=== PATIENT | female | born 1965 | race Caucasian/White ===

== ENCOUNTER 2016-11-11 11:25 | Day surgery (SDC) | payer BC ==
[~2016-11-11] VITALS: Ht 160 cm; Wt 59.9 kg
[2016-11-11] VITALS (8 sets, daily range): BP systolic 132–162; BP diastolic 62–80
[~2016-11-11 11:25] MED LIST: ASPI-983 PO; CLOP75TA28 PO; METF1000 PO; TRAM50TA2 PO
[2016-11-11] MEDS ORDERED: LIDOCAINE 1% INJ 20 ML (XYLOCAINE) VIAL ONE ×2 (11:27→14:35)
[2016-11-11] MEDS ORDERED: HEParin (CATH LAB) 2,000 ML IV ONE (11:27)
[2016-11-11] MEDS ORDERED: NS IV 1000 ML 1,000 ML ONE (11:27)
--- OUTSIDE RECORDS SUMMARY | 2016-11-11 11:28 | XMS REPORT | Continuity of Care Document ---
Author Author [facility] Organization [facility] Address Unknown Phone Unavailable Care Team Providers Care Siderographer Name Role Phone CALE SHANNON MD PCP Insurance Providers Payer Name Policy Number Subscriber Name Relationship [facility] [id number] Ricki Simms Self / Same As Patient Advance Directives Directive Response Recorded Date/Time Advance Directives No 02/28/16 11:29am Health Care Power of [employer] Glazer No 02/28/16 11:29am Organ Donor Yes 02/28/16 11:29am Problems No problem information available. Medications Current Home Medications Medication Dose Units Route Directions Days/Qty Instructions Start Date Tramadol Hcl 50 Mg 50 Mg Oral Every 6 Hours as needed for Pain 02/27 Aspirin 81 Mg 81 Mg Oral Daily 100 02/28/16 Clopidogrel Bisulfate 75 Mg 75 Mg Oral Daily 30 02/28/16 Past Home Medications Medication Directions Ordered Status Metformin Hcl 1,000 Mg Tablet, 1000 Mg Oral Twice A Day 02/28/16 Discontinued Social History Social History Problem Response Recorded Date/Time Recent Foreign Travel No 03/30/2016 7:34am Hospital Discharge Instructions Current inpatient/outpatient. Discharge instructions are currently unavailable. Plan of Care Prescriptions Functional Status Query Response Date Recorded Patient Orientation Person Place Time Situation March 30, 2016 9:26am Allergies, Adverse Reactions, Alerts Allergen Type Severity Reaction Status Last Updated Cephalexin Allergy Mild RASH Active 02/28/16 Immunizations No immunization records. Vital Signs Acute Vital Signs Vital Response Date/Time Pulse Rate (adult) 56 bpm (60 - 90) 03/30/2016 9:26am Respiratory Rate 14 bpm (12 - 24) 03/30/2016 9:26am O2 Sat by Pulse Oximetry 97 % (88 - 100) 03/30/2016 9:26am Blood Pressure 164/69 mm Hg 03/30/2016 9:26am Blood Pressure Mean 100 mm Hg 03/30/2016 9:26am Results Microbiology Results Procedure Source Result Collection Date/Time Result Date/Time Anaerobic Culture Tissue, Foot, Right No growth 01/23/2016 1:10pm 2015 4:30pm Wound Culture Tissue, Foot, Right No growth 01/23/2016 1:10pm 01/27/2016 4: 30pm Procedures No known history of procedures. Encounters Encounter Location Arrival/Admit Date Discharge/Depart Date Attending Provider Registered Clinic [facility] 03/30/16 7:36am FARZANEH SKELTON MD Discharged Recurring [facility] 02/27/16 12:35pm 11:59pm VIDYA BANDA APRN
--- OUTSIDE RECORDS SUMMARY | 2016-11-11 11:28 | XMS REPORT | Continuity of Care Document ---
Author Author [facility] Organization [facility] Address Unknown Phone Unavailable Care Team Providers Care Locomotive Supervisor Name Role Phone CALE SHANNON MD PCP Insurance Providers Payer Name Policy Number Subscriber Name Relationship [facility] [id number] Ricki Simms Self / Same As Patient Advance Directives Directive Response Recorded Date/Time Advance Directives No 02/28/16 11:29am Health Care Power of Robotics Engineer No 02/28/16 11:29am Organ Donor Yes 02/28/16 [...] Discharge/Depart Date Attending Provider Registered Clinic [facility] 03/30/16 7:36am FARZANEH SKELTON MD Discharged Recurring [facility] 02/27/16 12:35pm 11:59pm VIDYA BANDA APRN
[2016-11-11] MEDS ORDERED: NS IV 1000 ML 1,000 ML IV SCH (12:00)
[2016-11-11] MEDS ORDERED: METF1000 PO (12:04)
[2016-11-11] MEDS ORDERED: ASPI-983 PO (12:04)
[2016-11-11] MEDS ORDERED: CLOP75TA69 PO (12:04)
[2016-11-11] MEDS ORDERED: OMG1KC PO (12:04)
[2016-11-11 12:07] LABS: RED BLOOD COUNT 4.18 10^6/uL (4.35-5.85); RED CELL DISTRIBUTION WIDTH 13.4 % (10.0-14.5)
[2016-11-11 12:08] LABS: BILIRUBIN,URINE NEGATIVE (NEGATIVE); KETONES,URINE 1+ (NEGATIVE); LEUKOCYTE ESTERASE ,URINE 1+ (NEGATIVE); NITRITE,URINE NEGATIVE (NEGATIVE); PH,URINE 6 (5-9); PROTEIN,URINE NEGATIVE (NEGATIVE); UROBILINOGEN,URINE 1 MG/DL (NORMAL)
[2016-11-11 12:24] LABS: INR 0.9 (0.8-1.4); PROTHROMBIN TIME PATIENT 12.3 SEC (12.2-14.7)
--- NOTE | 2016-11-11 12:25 | Diagnostic Imaging Report ---
Indication: Peripheral vascular disease Portable chest 12:19 PM Heart size and pulmonary vascularity are normal. Lungs are clear. There are no effusions or pneumothoraces. Impression: Negative chest Dictated by: Dictated on workstation # [id number]
[2016-11-11 12:26] LABS: WBC,URINE 0-2 /HPF
[2016-11-11 12:35] LABS: ALANINE AMINOTRANSFERASE 12 U/L (0-55); ALBUMIN 4.2 G/DL (3.2-4.5); ANION GAP 11 MMOL/L (5-14); ASPARTATE AMINO TRANSFERASE 14 U/L (5-34); BILIRUBIN,TOTAL 0.4 MG/DL (0.1-1.0); BLOOD UREA NITROGEN 12 MG/DL (7-18); BUN/CREATININE RATIO 16; CALCIUM 8.9 MG/DL (8.5-10.1); CARBON DIOXIDE 23 MMOL/L (21-32); CHLORIDE 106 MMOL/L (98-107); CHOLESTEROL 210 MG/DL (< 200); CREATININE SERUM 0.75 MG/DL (0.60-1.30); DIRECT LDL 169 MG/DL (1-129); GFR ESTIMATED > 60; GLUCOSE 95 MG/DL (70-105); POTASSIUM 3.4 MMOL/L (3.6-5.0); SODIUM 140 MMOL/L (135-145); TOTAL PROTEIN 6.7 G/DL (6.4-8.2); TRIGLYCERIDES 83 MG/DL (<150); VLDL CHOLESTEROL 17 MG/DL (5-40)
[2016-11-11] MEDS ORDERED: FLU TRIvalent (5 YOA+) 2016-17 (AFLURIA) 0.5 ML IM ONE (13:00)
[2016-11-11] MEDS ORDERED: HEParin 1000 UNIT/ML (10ML VIAL) FOR BOLUS ONE (14:39)
[2016-11-11] MEDS ORDERED: NITROGLYCERIN DRIP 25 MG/D5W 250 ML IV ONE (15:02)
[2016-11-11] MEDS ORDERED: meTOprolol 5 MG/5 ML (LOPRESSOR) VIAL IV NR (16:45)
[2016-11-11] MEDS ORDERED: ENALAPRILAT 2.5 MG/2 ML (VASOTEC) VIAL IV NR (16:45)
[2016-11-11] MEDS ORDERED: PATIENT MAY USE OWN MEDS, ALL PO SCH (16:45)
[2016-11-11] MEDS: NS IV 1000 ML 1,000 ML IV SCH ×2 (19:04→21:17)
[2016-11-11] MEDS ORDERED: ONDANSETRON 4 MG/2 ML (SDV) Z0FRAN IVP PRN (19:15)
[2016-11-11] MEDS ORDERED: ATROPINE INJECTION 1 MG/10 ML SYR (ABBOTT) ONE (20:15)
[2016-11-11] MEDS ORDERED: fentaNYL INJECTION 100 MCG/2 ML AMP ONE (20:15)
[2016-11-11] MEDS ORDERED: ATORVASTATIN 10 MG (LIPITOR) TABLET PO SCH (21:00)
[2016-11-11] MEDS ORDERED: fentaNYL INJECTION 100 MCG/2 ML AMP IVP PRN (21:30)
[2016-11-12] VITALS (9 sets, daily range): BP systolic 136–176; BP diastolic 67–78
[2016-11-12 04:19] LABS: BASOPHILS % (AUTO) 0 % (0-10); EOSINOPHILS % (AUTO) 0 % (0-10); LYMPHOCYTES # (AUTO) 1.2 X 10^3 (1.0-4.0); LYMPHOCYTES % (AUTO) 16 % (12-44); MEAN CORPUSCULAR HEMOGLOBIN 33 PG (25-34); MEAN CORPUSCULAR HGB CONC 33 G/DL (32-36); MEAN CORPUSCULAR VOLUME 98 FL (80-99); MEAN PLATELET VOLUME 10.2 FL (7.4-10.4); MONOCYTES # (AUTO) 0.7 X 10^3 (0.0-1.0); MONOCYTES % (AUTO) 9 % (0-12); NEUTROPHILS # (AUTO) 5.6 X 10^3 (1.8-7.8); NEUTROPHILS % (AUTO) 74 % (42-75); PLATELET COUNT 154 10^3/uL (130-400); RED BLOOD COUNT 3.84 10^6/uL (4.35-5.85); RED CELL DISTRIBUTION WIDTH 13.4 % (10.0-14.5); WHITE BLOOD COUNT 7.5 10^3/uL (4.3-11.0)
[2016-11-12 04:44] LABS: ANION GAP 9 MMOL/L (5-14); BLOOD UREA NITROGEN 11 MG/DL (7-18); BUN/CREATININE RATIO 15; CALCIUM 8.3 MG/DL (8.5-10.1); CARBON DIOXIDE 22 MMOL/L (21-32); CHLORIDE 108 MMOL/L (98-107); CREATININE SERUM 0.71 MG/DL (0.60-1.30); GFR ESTIMATED > 60; GLUCOSE 108 MG/DL (70-105); MAGNESIUM 1.6 MG/DL (1.8-2.4); PHOSPHORUS 4.1 MG/DL (2.3-4.7); POTASSIUM 4.1 MMOL/L (3.6-5.0); SODIUM 139 MMOL/L (135-145)
--- NOTE | 2016-11-12 07:22 | Cardiology Progress Note ---
Subjective Subjective/Events-last exam patient is feeling better, pulses palpable, groin on both side are healing well Review of Systems General: No Chills, No Night Sweats, No Fatigue, No Malaise, No Appetite, No Other HEENT: No Head Aches, No Visual Changes, No Eye Pain, No Ear Pain, No Dysphasia , No Sinus Congestion, No Post Nasal Drip, No Sore Throat, No Other Pulmonary: No Dyspnea, No Cough, No Pleuritic Chest Pain, No Other Cardiovascular: No: Chest Pain, Edema, Lt Headedness, Orthopnea, Other, Palpitations, Paroxysmal Noc. Dyspnea Objective-Cardiology Exam Last Set of Vital Signs Vital Signs 11/12/16 06:00 Pulse 66 Resp 14 B/P 176/78 Pulse Ox 96 O2 Delivery Room Air Capillary Refill : Less Than 3 Seconds General: Alert, Oriented X3, Cooperative HEENT: Atraumatic, PERRLA Neck: Supple, No JVD, No Thyromegaly Lungs: Clear to Auscultation, Normal Air Movement Heart: Regular Rate, Normal S1, Normal S2, No Murmurs Abdomen: Normal Bowel Sounds, Soft, No Tenderness, No Hepatosplenomegaly, No Masses Extremities: No Clubbing, No Cyanosis, No Edema, Normal Pulses, No Tenderness/ Swelling Skin: No Rashes, No Breakdown, No Significant Lesion Neuro: Normal Gait, Normal Speech, Strength at 5/5 X4 Ext, Normal Tone, Sensation Intact Psych/Mental Status: Mental Status NL, Mood NL Results Lab Laboratory Tests 11/11/16 12:00 11/12/16 03:17 A/P-Cardiology Admission Diagnosis peripheral arterial disease Nonhealing foot ulcer Hypertension Hyperlipidemia Tobaccoism Assessment/Plan Extensive peripheral arterial disease, complex intervention to the iliac arteries, small arteries, excellent results, palpable pulses bilaterally Nonhealing foot ulcer, continue to monitor Hypertension, starting on Norvasc, monitor blood pressure Hyperlipidemia, starting on Lipitor Tobaccoism dictated on smoking cessation FARZANEH SKELTON MD Nov 12, 2016 07:22
[2016-11-12] MEDS ORDERED: AMLO5TAB2 PO (07:23)
[2016-11-12] MEDS ORDERED: ATOR10TA66 PO (07:23)
--- NOTE | 2016-11-12 07:25 | Discharge Inst-Post CATH ---
Discharge Inst-CATH Post Cardiac Cath D/C Inst Follow Up/Plan Hold metformin for [address] Liu's office next week CARDIAC CATH DISCHARGE INSTRUCTIONS *Hold Metformin for 48 hours post heart cath. ACTIVITY * Go Home directly and rest. * Limit activity of the leg (or wrist if it was used) for 7 days including aerobics, swimming, jogging, bicycling, etc. * Restrict stair-climbing for 7 days if possible, if not, climb up with your non -cath leg, then bring together on the same step. * Avoid lifting, pushing, pulling or excessive movement of the affected extremity for 7 days. * Customary sexual activity may be resumed after 2 days-use caution not to use a position that strains or causes pain to the affected extremity. * No driving for 24 hours. * NO SMOKING. * Avoid straining for bowel movements for 7 days. * Gentle walking on level ground is allowed. * Returning to work will depend on the type of procedure and the results. Your doctor will discuss this with you. CALL YOUR DOCTOR FOR ANY OF THE FOLLOWING: *If bleeding from the puncture site occurs- Apply gentle pressure to site with clean cloth and call your doctor or EMS. * If a knot or lump forms under the skin, increases in size, or causes pain. * If bruising appears to be worsening or moving further down your leg instead of disappearing. * Temperature above 101 F. CARE OF YOUR GROIN INCISION; * Bruising or purple discoloration of the skin near the puncture site is common. * You may shower only, no bathtub bathing for 5 days. Be careful to avoid slipping as your leg may feel stiff. * If a closure device was used on your femoral artery, please see the attached guide regarding care of the device and your leg. * REMOVE the dressing from your groin the next day after your procedure in the shower. CARE OF YOUR WRIST INCISION; * Bruising or purple discoloration of the skin near the puncture site is common. * You may shower. * DO NOT submerge wrist. * Remove dressing in 24 hours. FARZANEH LIU MD Nov 12, 2016 07:25
[2016-11-12] MEDS ORDERED: MAGNESIUM 1 GM/100 ML IVPB 100 ML IV NR (07:42)
[2016-11-12] MEDS ORDERED: OMEGA 3 (FISH OIL) 1000 MG CAP PO SCH (08:00)
[2016-11-12] MEDS ORDERED: MAGNESIUM OXIDE (MAG-OX)400 MG TAB ONE (08:20)
[2016-11-12] MEDS ORDERED: MAGNESIUM OXIDE (MAG-OX)400 MG TAB PO NR (08:27)
[2016-11-12] MEDS ORDERED: amLODIPine 5 MG (NORVASC) TAB PO SCH (09:00)
[2016-11-12] MEDS ORDERED: CLOPIDOGREL 75 MG (PLAVIX) TABLET PO SCH (09:00)
[2016-11-12] MEDS ORDERED: ASPIRIN E.C. 81 MG (ECOTRIN) TAB PO SCH (09:00)
--- NOTE | 2016-11-12 13:22 | DISCHARGE SUMMARY ---
PROCEDURE PHYSICIAN: FARZANEH SKELTON DATE OF PROCEDURE: 11/11/2016 REFERRING PHYSICIAN: [facility]. BRIEF HISTORY: Mrs. Underwood is a 50-year-old lady with extensive peripheral arterial disease. She had nonhealing ulcer. The patient had abnormal JAMISON. She was referred for evaluation for possible bypass surgery, the patient is really concerned and refusing any surgical evaluation. We decided to proceed with possible percutaneous intervention. PROCEDURE NOTE: After explaining the procedure to the patient, all pros and cons were explained. All questions were answered. The patient signed a consent, then she was placed on the cardiac catheterization laboratory. The right groin was prepped in a sterile fashion. 6-[place] sheath was placed in the right femoral artery. A pigtail catheter advanced to the abdominal aorta. Abdominal aortogram was done. The patient has severe disease almost no flow in both legs. Complex intervention was done. I had to quit 5-[place] sheath on the left groin then upgraded to a 6-[place] sheath. I was unable to cross with multiple wires. After multiple attempts I able to access with a glidewire. Then I noted that is probably within the dissection flap. I retracted and retracted the sheath and advanced it through after significant maneuvering into the true lumen. I advanced on the left side, started with a 5-0 balloon inflated then I placed an Omnilink lead 7 x 39 in the left common iliac artery. On the right side I dilated with a balloon 5 x 100 with good results. Advanced 4 mm balloon up to the abdominal aorta, removed glidewire. Checked for blood return and then put Storq wire pulled the balloon down to the iliac artery that was totally occluded and did multiple inflations. Then I advanced [place] 5 balloon also multiple inflations. The patient had long dissection in the iliac artery and femoral artery. I decided to proceed with a long stent, I used self-expanding absolute Pro 7 x 80 in the left femoral and iliac artery. Then I noted there is dissection at the ostium of the iliac artery. Subsequently, I was obligated to put kissing stent. I used Omnilink Elite balloon expanding stent 7 x 29 on the left and 7 x 19 on the right overlapping with the first stent, deployed to their nominal size. Then I introduce pigtail catheter; angiogram showed excellent results. Both sheaths were sutured in place. FINDINGS: 1. Abdominal aortogram showed small aneurysmal dilatation. No dissection or aneurysm. 2. Bilateral lower extremity showed subtotal occlusion, on the right side. Totally occluded on the left side, reconstructed by collaterals. Slow flow on the left side. There is extensive peripheral arterial disease mainly in the pelvic area. Complex intervention resulted with deployment of 2 stents on the left iliac artery. The Omnilink Elite 7 x 39 and 7 x 19 overlapping to the ostium of the iliac artery. On the left side I used Absolute Pro self expanding stent 7 x 80 overlapping with Omnilink Elite 7 x 29 at the ostium; kissing stents were deployed. Angiogram at the end showed excellent result with good flow down to the trifurcation. CONCLUSION: 1. Subtotal occlusion of the right iliac artery and total occlusion of the left iliac artery, deployment of kissing stents and overlapping stents. On the right side Omnilink Elite 7 x 19 and 7 x 39, overlapping with excellent results. On the left side Omnilink Elite 7 x 29 overlapping with Absolute Pro self-expanding stents 7 x 80 with excellent results. Improvement. The patient still has severe stenosis at the ostium of the left superficial femoral artery. The sheath itself almost obstructing the artery. Maximizing medical therapy is recommended and close monitoring. FINAL DIAGNOSES: 1. Nonhealing foot ulcer on the right heel. 2. Extensive peripheral arterial disease. 3. Hypertension. 4. Hyperlipidemia. 5. Diabetes mellitus. 6. Tobaccoism. Job ID: [id number] Dictated Date: 11/11/2016 16:47:10 Copywriting Intern Date: 11/12/2016 13:19:36/jose
== END 2016-11-12 09:20 | disposition home or self-care (01) ==
LOC: CATH 11:25 → ICU 18:47 → CATH 11-12 09:20
PROVIDERS: ATTEND Internal Medicine Cardiovascular Disease
DX: L97.429 Non-pressure chronic ulcer of left heel and midfoot with unspecified severity (principal); I70.203 Unspecified atherosclerosis of native arteries of extremities, bilateral legs; I70.92 Chronic total occlusion of artery of the extremities; E11.621 Type 2 diabetes mellitus with foot ulcer; I10 Essential (primary) hypertension; E78.5 Hyperlipidemia, unspecified; Z72.0 Tobacco use; Z79.899 Other long term (current) drug therapy
CPT/HCPCS: 36200; 36415; 37221; 37226; 71010; 75630; 80048; 80053; 80061; 81000; 83735; 84100; 84703; 85025; 85027; 85347; 85610; 85730; 87081; 93005

== ENCOUNTER 2018-05-23 17:17 | Inpatient (IN) | payer BC ==
[~2018-05-23] VITALS: Ht 160 cm; Wt 61.2 kg
[~2018-05-23 17:17] MED LIST changes: +AMLO5TAB2 PO; +ATOR10TA66 PO; +CLOP75TA69 PO; -METF1000 PO; +METF10002 PO; +OMG1KC PO
[2018-05-23 19:00] VITALS: BP 144/105
[2018-05-23 20:00] VITALS: BP 138/77
[2018-05-23 20:31] LABS: HEMOGLOBIN 12.9 G/DL (11.5-16.0); MEAN PLATELET VOLUME 9.9 FL (7.4-10.4); RED BLOOD COUNT 3.95 10^6/uL (4.35-5.85); RED CELL DISTRIBUTION WIDTH 13.6 % (10.0-14.5); WHITE BLOOD COUNT 5.9 10^3/uL (4.3-11.0)
[2018-05-23] MEDS ORDERED: METF500T5 PO (20:40)
[2018-05-23 20:46] LABS: INR 0.9 (0.8-1.4); PROTHROMBIN TIME PATIENT 12.3 SEC (12.2-14.7)
[2018-05-23 20:54] LABS: ALANINE AMINOTRANSFERASE 13 U/L (0-55); ALBUMIN 4.2 GM/DL (3.2-4.5); ALKALINE PHOSPHATASE 59 U/L (40-136); BILIRUBIN,TOTAL 0.3 MG/DL (0.1-1.0); BUN/CREATININE RATIO 14; CALCIUM 9.1 MG/DL (8.5-10.1); CARBON DIOXIDE 22 MMOL/L (21-32); CHLORIDE 105 MMOL/L (98-107); CREATININE SERUM 0.72 MG/DL (0.60-1.30); GFR ESTIMATED > 60; GLUCOSE 94 MG/DL (70-105); POTASSIUM 4.1 MMOL/L (3.6-5.0); SODIUM 136 MMOL/L (135-145)
[2018-05-23 21:00] VITALS: BP 138/69
[2018-05-23] MEDS ORDERED: CLOPIDOGREL 75 MG (PLAVIX) TABLET PO ONE (21:30)
[2018-05-23 22:00] VITALS: BP 163/88
[2018-05-23] MEDS: NS IV 1000 ML 1,000 ML IV SCH (22:19)
[2018-05-23] MEDS: oxyCODONE/APAP 5/325MG (PERCOCET 5) TABLET PO PRN (22:19)
[2018-05-23 23:00] VITALS: BP 137/92
[2018-05-24] VITALS: BP 113/57
[2018-05-24] MEDS: oxyCODONE/APAP 5/325MG (PERCOCET 5) TABLET PO PRN ×4 (01:24→19:20)
[2018-05-24 04:00] VITALS: BP 104/62
[2018-05-24] MEDS: PANTOPRAZOLE 40 MG (PROTONIX) TAB PO SCH (06:04)
[2018-05-24 06:26] LABS: BUN/CREATININE RATIO 16; CALCIUM 8.6 MG/DL (8.5-10.1); CARBON DIOXIDE 24 MMOL/L (21-32); CHLORIDE 108 MMOL/L (98-107); CHOLESTEROL 168 MG/DL (< 200); CREATININE SERUM 0.69 MG/DL (0.60-1.30); GFR ESTIMATED > 60; GLUCOSE 117 MG/DL (70-105); HDL CHOLESTEROL 27 MG/DL (40-60); POTASSIUM 4.2 MMOL/L (3.6-5.0); SODIUM 139 MMOL/L (135-145); TRIGLYCERIDES 119 MG/DL (<150); VLDL CHOLESTEROL 24 MG/DL (5-40)
[2018-05-24] MEDS ORDERED: HEParin 1000 UNIT/ML (10ML VIAL) FOR BOLUS IV PRN (07:15)
[2018-05-24] MEDS ORDERED: HEParin DRIP 25000 UNIT/500ML 500 ML IV SCH (07:15)
--- NOTE | 2018-05-24 07:27 | Cardiology History & Physical ---
HPI-Cardiology Cardiology Consultation Date of Consultation 05/24/18 Date of Admission Time Seen by Provider: 07:22 Indication: Ischemic foot HPI Mrs Underwood is 52-year-old lady with history of extensive peripheral arterial disease, diabetes mellitus, tobaccoism, foot ulcer. She was seen in the office yesterday and directly admitted, had peripheral arterial disease, extensive intervention. Good results. The ulcer on her foot has healed initially, did not do her follow-up visit, reported another ulcer started later on and then becoming worse for the past 2 months, having worsening cyanosis and multiple ulcer on her foot. Referred back by her primary care physician, I visited with her, she has multiple gangrenous lesion on her toes. Patient was scheduled for peripheral angiogram and then at I decided to admit her and start him on IV fluid and anticoagulation and pain medication in preparation for the procedure which will be postponed for 48 hours due to the recent metformin use PMH-Cardiology Seasonal Allergies Seasonal Allergies: No Surgeries Yes Respiratory No Cardiovascular No Neurological No Reproductive System Sexually Transmitted Disease: No HIV/AIDS: No Genitourinary No Gastrointestinal No Musculoskeletal No Endocrine Yes HEENT No Cancer No Psychosocial No Integumentary No Blood Transfusions No Adverse Rxn to Transfusion: No Other PMHx Past medical history as discussed below Social History Patient Social History Marrital Status: Employed/Student: unemployed Alcohol Use: Denies Use Recreational Drug Use: Yes Smoking: Current every day smoker Recent Foreign Travel: No Contact w/other who traveled: No Recent Infectious Disease Expo: No Family Hx Other Family history of heart disease, arterial disease ROS-Cardiology Review of Systems General: No Chills, No Night Sweats, No Fatigue; Malaise; No Appetite HEENT: No Head Aches, No Visual Changes, No Eye Pain, No Ear Pain, No Dysphasia , No Sinus Congestion, No Post Nasal Drip, No Sore Throat Pulmonary: No Dyspnea, No Cough, No Pleuritic Chest Pain Cardiovascular: No: Chest Pain, Palpitations, Orthopnea, Paroxysmal Noc. Dyspnea, Edema, Lt Headedness Gastrointestinal: No: Nausea, Vomiting, Abdominal Pain, Diarrhea, Constipation , Melena, Hematochezia Genitourinary: No Dysuria, No Frequency, No Incontinence, No Hematuria, No Retention Musculoskeletal: foot pain; No: neck pain, shoulder pain, arm pain, back pain, hand pain, leg pain Neurological: No: Weakness, Numbness, Incoordination, Change in speech, Confusion, Seizures Home Medications & Allergies Allergies: Coded Allergies: cephalexin (Verified Allergy, Mild, RASH, 02/28/16) Home Medication List Reviewed: Yes Exam-Cardiology Vital Signs Vital Signs Date Time Temp Pulse Resp B/P (MAP) Pulse Ox O2 Delivery O2 Flow Rate FiO2 05/24/18 04:00 92 Room Air 05/24/18 04:00 97.6 57 16 104/62 (76) Exam General Appearance: Alert, Oriented X3, Cooperative, No Acute Distress HEENT: Atraumatic, PERRLA Respiratory: Clear to Auscultation, Normal Air Movement Cardiovascular: Regular Rate, Normal S1, Normal S2, Other (Systolic murmur) Abdominal: Normal Bowel Sounds, Soft, No Tenderness, No Hepatosplenomegaly, No Masses Extremities: No Edema, Other (Multiple gangrenous lesion on the first and third toe on the right, diminished pulses bilaterally) Skin: No Rashes, No Breakdown, No Significant Lesion Neuro: Normal Gait, Normal Speech, Strength at 5/5 X4 Ext, Normal Tone, Sensation Intact Psych/Mental Status: Mental Status NL, Mood NL Results Labs Labs Laboratory Tests 05/23/18 20:23: White Blood Count 5.9, Red Blood Count 3.95L, Hemoglobin 12.9, Hematocrit 38, Mean Corpuscular Volume 96, Mean Corpuscular Hemoglobin 33, Mean Corpuscular Hemoglobin Concent 34, Red Cell Distribution Width 13.6, Platelet Count 187, Mean Platelet Volume 9.9, Prothrombin Time 12.3, INR Comment 0.9, Activated Partial Thromboplast Time 31, Sodium Level 136, Potassium Level 4.1, Chloride Level 105, Carbon Dioxide Level 22, Anion Gap 9, Blood Urea Nitrogen 10, Creatinine 0.72, Estimat Glomerular Filtration Rate > 60, BUN/Creatinine Ratio 14, Glucose Level 94, Calcium Level 9.1, Total Bilirubin 0.3, Aspartate Amino Transf (AST/SGOT) 17, Alanine Aminotransferase (ALT/SGPT) 13, Alkaline Phosphatase 59, Total Protein 7.0, Albumin 4.2 05/24/18 05:05: Sodium Level 139, Potassium Level 4.2, Chloride Level 108H, Carbon Dioxide Level 24, Anion Gap 7, Blood Urea Nitrogen 11, Creatinine 0.69, Estimat Glomerular Filtration Rate > 60, BUN/Creatinine Ratio 16, Glucose Level 117H, Calcium Level 8.6, Triglycerides Level 119, Cholesterol Level 168, LDL Cholesterol Direct 125, VLDL Cholesterol 24, HDL Cholesterol 27L A/P-Cardiology Admission Diagnosis Peripheral arterial disease Ischemic foot Gangrene Hypertension Hyperlipidemia Admission Status: Inpatient Order (span 2 midnights) Reason for Inpatient Admission: Patient was admitted and started on heparin drip and IV fluid and will be planning for procedure after 48 hours from admission Assessment/Plan Peripheral vascular disease- she underwent peripheral angiogram on February 28, 2016 revealing severe peripheral arterial disease, improvement in the gradient across the right common iliac artery after balloon angioplasty, still had disease at the right, femoral artery and slow flow distally due to small vessel disease. Total occlusion at the origin of the left common femoral artery, reconstructed by collaterals with slow flow distally. Underwent complex intervention on November 11, 2016 which showed subtotal occlusion of the right iliac artery and total occlusion of the left iliac artery had kissing stent overlapping stents on the right side Omnilink Elite 739 and 7x19 overlapping, on the left side Absolute Pro self-expanding 7 time 80 overlapping with Omnilink Elite 729 with excellent results. Still have significant disease at the common femoral artery which need monitoring, JAMISON post intervention was 0.94 on the right and 0.95 on the left with significant improvement. Her ulcer has healed initially, then she had a new ulcer for the past 2 months and she has been worsening, referred back by her primary care physician, she has missed her last appointment with us. I will proceed with peripheral angiogram. Patient was started on heparin drip and IV fluid in preparation for the procedure Hyperlipidemia, I will start fish oil, LDL 125. Diabetes mellitus, followed and managed by primary care physician, I instructed her to stop metformin today in preparation for the procedure Tobaccoism, back to smoking, had a long discussion about smoking cessation. Multiple risk factors for coronary artery disease, Lexiscan stress test and 2-D echocardiogram done February 2016 negative for ischemia or infarct, normal EF. Continue to monitor. Noncompliance, patient did not show up for her appointment, has been having ulcer and cyanosis, referred back by Dr. Meade, reported that she thought that she was cured initially. I explained to her the importance of adherence to the plan and follow-up and maintenance and stop smoking and taking her medications. Clinical Quality Measures DVT/VTE Risk/Contraindication: Risk Factor Score Per Nursin RFS Level Per Nursing on Admit: 4+=Very High FARZANEH SKELTON MD May 24, 2018 07:27
[2018-05-24 07:29] LABS: HEMOGLOBIN 12.7 G/DL (11.5-16.0); MEAN PLATELET VOLUME 10.7 FL (7.4-10.4); RED BLOOD COUNT 3.85 10^6/uL (4.35-5.85); RED CELL DISTRIBUTION WIDTH 13.6 % (10.0-14.5); WHITE BLOOD COUNT 4.7 10^3/uL (4.3-11.0)
[2018-05-24 07:30] LABS: INR 0.9 (0.8-1.4); PROTHROMBIN TIME PATIENT 12.5 SEC (12.2-14.7)
[2018-05-24 08:00] VITALS: BP 123/73
[2018-05-24] MEDS: OMEGA 3 (FISH OIL) 1000 MG CAP PO SCH (09:52)
[2018-05-24] MEDS: CLOPIDOGREL 75 MG (PLAVIX) TABLET PO SCH (09:52)
[2018-05-24] MEDS: ASPIRIN E.C. 81 MG (ECOTRIN) TAB PO SCH (09:53)
[2018-05-24] MEDS: NS IV 1000 ML 1,000 ML IV SCH ×3 (09:53→19:21)
[2018-05-24 12:00] VITALS: BP 160/69
[2018-05-24 20:00] VITALS: BP 141/88
[2018-05-25] VITALS (23 sets, daily range): BP systolic 105–168; BP diastolic 58–93
[2018-05-25] MEDS: NS IV 1000 ML 1,000 ML IV SCH ×3 (05:15→19:03)
[2018-05-25] MEDS ORDERED: HEParin (CATH LAB) 2,000 ML IV ONE (06:52)
[2018-05-25] MEDS ORDERED: LIDOCAINE 1% INJ 20 ML 20 ML VIAL ONE (06:52)
[2018-05-25] MEDS ORDERED: NS IV 1000 ML 1,000 ML ONE (06:52)
[2018-05-25] MEDS: PANTOPRAZOLE 40 MG (PROTONIX) TAB PO SCH (07:22)
--- NOTE | 2018-05-25 07:28 | Cardiac Procedure Note-CS/ASA ---
Pre-Procedure Note Pre-Op Procedure Note H&P Reviewed The H&P was reviewed, patient examined and no changes noted. Date H&P Reviewed: May 25, 2018 Time H&P Reviewed: 07:28 Conscious Sedation Pre-Proced Time Reviewed: : ASA Class: 3 Airway Mallampati Classification: ([place] appropriate class) I. II. III, IV Lungs Heart ASA score ASA 1: a normal healthy patient ASA 2: a patient with a mild systemic disease (mid diabetes, controlled hypertension, obesity x ASA 3: a patient with a severe systemic disease that limits activity (angina , COPD, prior Myocardial infarction) ASA 4: a patient with an incapacitating disease that is a constant threat to life (CHF, renal failure) ASA 5: a moribund patient not expected to survive 24 hrs. (ruptured aneurysm) ASA 6: a declared brain patient whose organs are being harvested. For emergent operations, add the letter E after the classification Grade 3 Sedation Plan: Analgesia, Amnesia, Plan communicated to team members, Discussed options with patient/fam, Discussed risks with patient/fam Note The patient is an appropriate candidate to undergo the planned procedure, sedation, and anesthesia. The patient immediately re-assessed prior to indication. FARZANEH SKELTON MD May 25, 2018 07:28
--- NOTE | 2018-05-25 07:40 | Cardiology Progress Note ---
Subjective Date Seen by Provider: May 25, 2018 Time Seen by Provider: 07:38 Subjective/Events-last exam Patient is sitting in bed, feeling better, still have cyanosis of her toe, denied any chest pain Review of Systems General: No Chills, No Night Sweats, No Fatigue, No Malaise, No Appetite, No Other HEENT: No Head Aches, No Visual Changes, No Eye Pain, No Ear Pain, No Dysphasia , No Sinus Congestion, No Post Nasal Drip, No Sore Throat, No Other Pulmonary: No Dyspnea, No Cough, No Pleuritic Chest Pain, No Other Cardiovascular: No: Chest Pain, Palpitations, Orthopnea, Paroxysmal Noc. Dyspnea, Edema, Lt Headedness, Other Objective-Cardiology Exam Last Set of Vital Signs Vital Signs 05/25/18 04:00 Pulse 46 Resp 12 B/P (MAP) 135/61 (85) Pulse Ox 95 O2 Delivery Room Air Capillary Refill : I&O Intake and Output 05/25/18 00:00 Intake Total 2125 ml Output Total 1 ml Balance 2124 ml Intake Oral 1125 ml IV Total 1000 ml Output Urine Total 1 ml # Voids 7 General: Alert, Oriented X3, Cooperative, No Acute Distress HEENT: Atraumatic, PERRLA Lungs: Clear to Auscultation, Normal Air Movement Heart: Regular Rate, Normal S1, Normal S2, Other (Systolic murmur) Abdomen: Normal Bowel Sounds, Soft, No Tenderness, No Hepatosplenomegaly, No Masses Extremities: No Edema, Other (Multiple gangrenous lesion on the first and third toe on the right, diminished pulses bilaterally) Skin: No Rashes, No Breakdown, No Significant Lesion Neuro: Normal Gait, Normal Speech, Strength at 5/5 X4 Ext, Normal Tone, Sensation Intact Psych/Mental Status: Mental Status NL, Mood NL Results Lab Laboratory Tests 05/25/18 02:40 A/P-Cardiology Admission Diagnosis Peripheral arterial disease Ischemic foot Gangrene Hypertension Hyperlipidemia Assessment/Plan Peripheral vascular disease- she underwent peripheral angiogram on February 28, 2016 revealing severe peripheral arterial disease, improvement in the gradient across the right common iliac artery after balloon angioplasty, still had disease at the right, femoral artery and slow flow distally due to small vessel disease. Total occlusion at the origin of the left common femoral artery, reconstructed by collaterals with slow flow distally. Underwent complex intervention on November 11, 2016 which showed subtotal occlusion of the right iliac artery and total occlusion of the left iliac artery had kissing stent overlapping stents on the right side Omnilink Elite 739 and 7x19 overlapping, on the left side Absolute Pro self-expanding 7 time 80 overlapping with Omnilink Elite 729 with excellent results. Still have significant disease at the common femoral artery which need monitoring, JAMISON post intervention was 0.94 on the right and 0.95 on the left with significant improvement. Her ulcer has healed initially, then she had a new ulcer for the past 2 months and she has been worsening, referred back by her primary care physician, she has missed her last appointment with us. I will proceed with peripheral angiogram today, patient understand all risks and benefits. Patient was started on heparin drip and IV fluid in preparation for the procedure Hyperlipidemia, I will start fish oil, LDL 125. Diabetes mellitus, followed and managed by primary care physician Tobaccoism, back to smoking, had a long discussion about smoking cessation. Multiple risk factors for coronary artery disease, Lexiscan stress test and 2-D echocardiogram done February 2016 negative for ischemia or infarct, normal EF. Continue to monitor. Noncompliance, patient did not show up for her appointment, has been having ulcer and cyanosis, referred back by Dr. Meade, reported that she thought that she was cured initially. I explained to her the importance of adherence to the plan and follow-up and maintenance and stop smoking and taking her medications. Clinical Quality Measures DVT/VTE Risk/Contraindication: Risk Factor Score Per Nursin RFS Level Per Nursing on Admit: 4+=Very High FARZANEH SKELTON MD May 25, 2018 07:40
[2018-05-25] MEDS ORDERED: MIDAZOLAM 5 MG/5 ML (VERSED) VIAL ONE (07:48)
[2018-05-25] MEDS ORDERED: fentaNYL INJECTION 100 MCG/2 ML AMP ONE (07:48)
[2018-05-25] MEDS ORDERED: HEParin 1000 UNIT/ML (10ML VIAL) FOR BOLUS ONE (08:05)
[2018-05-25] MEDS ORDERED: NITRO DRIP 25000 MCG/D5W 250 ML IV ONE (08:17)
[2018-05-25] MEDS ORDERED: ASPIRIN 81 MG CHEW (CHILDREN'S ASA) ONE (08:40)
[2018-05-25] MEDS ORDERED: CLOPIDOGREL 300 MG (PLAVIX) TABLET PO ONE (08:40)
[2018-05-25] MEDS ORDERED: PATIENT MAY USE OWN MEDS, ALL PO SCH (08:45)
--- NOTE | 2018-05-25 08:51 | Peripheral Report ---
Peripheral Report Physician (s)/Head Stock Transfer Clerk (s) Physician FARZANEH SKELTON MD Pre-Procedure Diagnosis Pre-Procedure Diagnosis: acute ischemic ulcer, PAD Post-Procedure Note Procedure Start Date: May 25, 2018 Name of Procedure: Abdominal aortogram Bilateral lower extremity runoff Balloon angioplasty to the common iliac and common femoral with drug-coated balloon Findings/Procedure Note PROCEDURE NOTE: After explaining the procedure to the patient, all pros and cons were explained , all questions were answered. The patient signed the consent and then she was placed on the cardiac catheterization laboratory. The patient was placed on the cardiac catheterization laboratory. Groin was prepped SL fashion local anesthesia was used. Sheath placed in the left femoral artery. Runoff to the left lower extremity was done through the sheath, it appear that the 6 [place] sheath has occluded the left common femoral artery, pressure was good and the sheath. Then I used a rim catheter and did runoff to the right leg. There is subtotal occlusion at the common iliac and severe disease diffusely, stent was patent. I advanced a long stork wire after giving 3000 units of heparin, patient was on heparin drip prior to the catheter procedure, I advanced a long 6 [place] sheath then proceeded with balloon dilate patient using [place] 4x40 , angiogram showed good results. Then I used drug- coated balloon Lutonix 5x100 with inflation to its nominal size, angiogram showed excellent results with excellent flow through the anterior tibial artery down to the foot. At that point the sheath was exchanged again into a short 6 [place] sheath then I advanced the pigtail catheter to the abdominal aorta and abdominal aortogram was done. At the end sheath was left in place to be pulled manually FINDINGS: Abdominal aortogram showed diffuse atherosclerotic disease mild aneurysmal dilated patient above the bifurcation, renal arteries appeared normal, superior and inferior mesenteric artery are normal, mild disease diffusely. Left leg runoff: The sheath was occluding the common femoral artery, there is good flow, stent was patent in the iliac artery Right leg runoff column stents were patent in the iliac artery, beyond the stent there is severe stenosis subtotal occlusion, artery is fairly small, balloon dilatation using 440 balloon with multiple inflations and then drug- coated balloon 5 x 100 with excellent results. CONCLUSIONS: 1. Subtotal occlusion at the right common femoral artery and severe disease diffusely at the common iliac, successful balloon angioplasty using [place] 4 x 40 then Lutonix 5 x 100 with excellent results 2. Patent stent in the left common iliac artery, the sheath was occluding the common femoral artery. Patient had +2 pulse in the foot prior to the procedure 3. Mild aneurysmal dilatation in the abdominal aorta just above the bifurcation , mild diffuse disease in the abdominal aorta. DISCUSSION AND RECOMMENDATIONS: Patient was educated on compliance with medication, smoking cessation. Anesthesia Type: Conscious Sedation Estimated blood loss (mL): 10 ml Contrast Amount: 60 ml Total Radiation Dose: 93 mGy Post-Procedure Diagnosis Post-operative diagnosis: Subacute ischemic foot Peripheral arterial disease Tobaccoism Hyperlipidemia FARZANEH SKELTON MD May 25, 2018 08:51
[2018-05-25] MEDS ORDERED: ATROPINE INJECTION 1 MG/10 ML SYR (ABBOTT) ONE (09:03)
[2018-05-25] MEDS: ASPIRIN E.C. 81 MG (ECOTRIN) TAB PO SCH (11:37)
[2018-05-25] MEDS: CLOPIDOGREL 75 MG (PLAVIX) TABLET PO SCH (12:54)
[2018-05-25] MEDS: OMEGA 3 (FISH OIL) 1000 MG CAP PO SCH (16:19)
[2018-05-25] MEDS: oxyCODONE/APAP 5/325MG (PERCOCET 5) TABLET PO PRN ×2 (16:20)
[2018-05-26] VITALS: BP 118/72
[2018-05-26] MEDS: oxyCODONE/APAP 5/325MG (PERCOCET 5) TABLET PO PRN (02:39)
[2018-05-26 04:00] VITALS: BP 132/68
[2018-05-26 04:06] LABS: HEMOGLOBIN 11.9 G/DL (11.5-16.0); MEAN PLATELET VOLUME 10.6 FL (7.4-10.4); RED BLOOD COUNT 3.61 10^6/uL (4.35-5.85); RED CELL DISTRIBUTION WIDTH 13.6 % (10.0-14.5); WHITE BLOOD COUNT 4.5 10^3/uL (4.3-11.0)
[2018-05-26 04:32] LABS: BUN/CREATININE RATIO 14; CALCIUM 8.7 MG/DL (8.5-10.1); CARBON DIOXIDE 23 MMOL/L (21-32); CHLORIDE 107 MMOL/L (98-107); CREATININE SERUM 0.64 MG/DL (0.60-1.30); GFR ESTIMATED > 60; GLUCOSE 116 MG/DL (70-105); POTASSIUM 4.2 MMOL/L (3.6-5.0); SODIUM 138 MMOL/L (135-145)
[2018-05-26] MEDS: NS IV 1000 ML 1,000 ML IV SCH (04:39)
[2018-05-26] MEDS: PANTOPRAZOLE 40 MG (PROTONIX) TAB PO SCH (06:21)
[2018-05-26 06:36] VITALS: BP 132/68
[2018-05-26 07:00] VITALS: BP 176/84
--- NOTE | 2018-05-26 07:53 | Cardiology Progress Note ---
Subjective Date Seen by Provider: May 26, 2018 Time Seen by Provider: 07:51 Subjective/Events-last exam Patient is in bed, feeling better, color of her toes is better. Review of Systems General: No Chills, No Night Sweats, No Fatigue, No Malaise, No Appetite, No Other HEENT: No Head Aches, No Visual Changes, No Eye Pain, No Ear Pain, No Dysphasia , No Sinus Congestion, No Post Nasal Drip, No Sore Throat, No Other Pulmonary: No Dyspnea, No Cough, No Pleuritic Chest Pain, No Other Cardiovascular: No: Chest Pain, Palpitations, Orthopnea, Paroxysmal Noc. Dyspnea, Edema, Lt Headedness, Other Objective-Cardiology Exam Last Set of Vital Signs Vital Signs 05/26/18 04:00 Temp 97.8 Pulse 50 Resp 16 B/P (MAP) 132/68 (89) Pulse Ox 95 O2 Delivery Room Air Capillary Refill : Greater Than 3 Seconds I&O Intake and Output 05/26/18 00:00 Intake Total 2990 ml Output Total 2750 ml Balance 240 ml Intake Oral 990 ml IV Total 2000 ml Output Urine Total 2750 ml # Voids 3 General: Alert, Oriented X3, Cooperative, No Acute Distress HEENT: Atraumatic, PERRLA Lungs: Clear to Auscultation, Normal Air Movement Heart: Regular Rate, Normal S1, Normal S2, Other (Systolic murmur) Abdomen: Normal Bowel Sounds, Soft, No Tenderness, No Hepatosplenomegaly, No Masses Extremities: No Edema, Other (Multiple gangrenous lesion on the first and third toe on the right, diminished pulses bilaterally) Skin: No Rashes, No Breakdown, No Significant Lesion Neuro: Normal Gait, Normal Speech, Strength at 5/5 X4 Ext, Normal Tone, Sensation Intact Psych/Mental Status: Mental Status NL, Mood NL Results Lab Laboratory Tests 05/26/18 03:09 A/P-Cardiology Admission Diagnosis Peripheral arterial disease Ischemic foot Gangrene Hypertension Hyperlipidemia Assessment/Plan Peripheral vascular disease- she underwent peripheral angiogram on February 28, 2016 revealing severe peripheral arterial disease, improvement in the gradient across the right common iliac artery after balloon angioplasty, still had disease at the right, femoral artery and slow flow distally due to small vessel disease. Total occlusion at the origin of the left common femoral artery, reconstructed by collaterals with slow flow distally. Underwent complex intervention on November 11, 2016 which showed subtotal occlusion of the right iliac artery and total occlusion of the left iliac artery had kissing stent overlapping stents on the right side Omnilink Elite 739 and 7x19 overlapping, on the left side Absolute Pro self-expanding 7 time 80 overlapping with Omnilink Elite 729 with excellent results. Still have significant disease at the common femoral artery which need monitoring, JAMISON post intervention was 0.94 on the right and 0.95 on the left with significant improvement. Her ulcer has healed initially, then she had a new ulcer for the past 2 months and she has been worsening, referred back by her primary care physician, she has missed her last appointment with us. Angiogram done yesterday with excellent results, findings described below. 1. Subtotal occlusion at the right common femoral artery and severe disease diffusely at the common iliac, successful balloon angioplasty using [place] 4 x 40 then Lutonix 5 x 100 with excellent results 2. Patent stent in the left common iliac artery, the sheath was occluding the common femoral artery. Patient had +2 pulse in the foot prior to the procedure 3. Mild aneurysmal dilatation in the abdominal aorta just above the bifurcation , mild diffuse disease in the abdominal aorta. Foot ulcer, pulses palpable, color is better, expecting healing of the wound Patient was started on heparin drip and IV fluid in preparation for the procedure Hyperlipidemia, I will start fish oil, LDL 125. Diabetes mellitus, followed and managed by primary care physician Tobaccoism, back to smoking, had a long discussion about smoking cessation. Multiple risk factors for coronary artery disease, Lexiscan stress test and 2-D echocardiogram done February 2016 negative for ischemia or infarct, normal EF. Continue to monitor. Noncompliance, patient did not show up for her appointment, has been having ulcer and cyanosis, referred back by Dr. Meade, reported that she thought that she was cured initially. I explained to her the importance of adherence to the plan and follow-up and maintenance and stop smoking and taking her medications. Clinical Quality Measures DVT/VTE Risk/Contraindication: Risk Factor Score Per Nursin RFS Level Per Nursing on Admit: 4+=Very High FARZANEH SKELTON MD May 26, 2018 07:53
[2018-05-26] MEDS ORDERED: CLOP75TA28 PO (07:54)
[2018-05-26] MEDS ORDERED: ATOR10TA PO (07:55)
--- NOTE | 2018-05-26 07:55 | Discharge Inst-Post CATH ---
Discharge Inst-CATH Post Cardiac Cath D/C Inst Follow Up/Plan Hold metformin for [address] Liu in one to 2 weeks CARDIAC CATH DISCHARGE INSTRUCTIONS *Hold Metformin for 48 hours post heart cath. ACTIVITY * Go Home directly and rest. * Limit activity of the leg (or wrist if it was used) for 7 days including aerobics, swimming, jogging, bicycling, etc. * Restrict stair-climbing for 7 days if possible, if not, climb up with your non -cath leg, then bring together on the same step. * Avoid lifting, pushing, pulling or excessive movement of the affected extremity for 7 days. * Customary sexual activity may be resumed after 2 days-use caution not to use a position that strains or causes pain to the affected extremity. * No driving for 24 hours. * NO SMOKING. * Avoid straining for bowel movements for 7 days. * Gentle walking on level ground is allowed. * Returning to work will depend on the type of procedure and the results. Your doctor will discuss this with you. CALL YOUR DOCTOR FOR ANY OF THE FOLLOWING: *If bleeding from the puncture site occurs- Apply gentle pressure to site with clean cloth and call your doctor or EMS. * If a knot or lump forms under the skin, increases in size, or causes pain. * If bruising appears to be worsening or moving further down your leg instead of disappearing. * Temperature above 101 F. CARE OF YOUR GROIN INCISION; * Bruising or purple discoloration of the skin near the puncture site is common. * You may shower only, no bathtub bathing for 5 days. Be careful to avoid slipping as your leg may feel stiff. * If a closure device was used on your femoral artery, please see the attached guide regarding care of the device and your leg. * REMOVE the dressing from your groin the next day after your procedure in the shower. CARE OF YOUR WRIST INCISION; * Bruising or purple discoloration of the skin near the puncture site is common. * You may shower. * DO NOT submerge wrist. * Remove dressing in 24 hours. FARZANEH LIU MD May 26, 2018 07:55
--- NOTE | 2018-05-26 07:58 | Cardiology Discharge Summary ---
Diagnosis/Chief Complaint Date of Admission May 23, 2018 at 17:17 Date of Discharge May 26, 2018 Admission Diagnosis Peripheral arterial disease Ischemic foot Gangrene Hypertension Hyperlipidemia Discharge Diagnosis Acute ischemic foot Peripheral arterial disease Hyperlipidemia Tobaccoism Diabetes mellitus Chief Complaint/HPI Chief Complaint/HPI Mrs Underwood is 52-year-old lady with history of extensive peripheral arterial disease, diabetes mellitus, tobaccoism, foot ulcer. She was seen in the office yesterday and directly admitted, had peripheral arterial disease, extensive intervention. Good results. The ulcer on her foot has healed initially, did not do her follow-up visit, reported another ulcer started later on and then becoming worse for the past 2 months, having worsening cyanosis and multiple ulcer on her foot. Referred back by her primary care physician, I visited with her, she has multiple gangrenous lesion on her toes. Patient was scheduled for peripheral angiogram and then at I decided to admit her and start him on IV fluid and anticoagulation and pain medication in preparation for the procedure which will be postponed for 48 hours due to the recent metformin use Discharge Summary Hospital Course Hospital Course Peripheral vascular disease- she underwent peripheral angiogram on February 28, 2016 revealing severe peripheral arterial disease, improvement in the gradient across the right common iliac artery after balloon angioplasty, still had disease at the right, femoral artery and slow flow distally due to small vessel disease. Total occlusion at the origin of the left common femoral artery, reconstructed by collaterals with slow flow distally. Underwent complex intervention on November 11, 2016 which showed subtotal occlusion of the right iliac artery and total occlusion of the left iliac artery had kissing stent overlapping stents on the right side Omnilink Elite 739 and 7x19 overlapping, on the left side Absolute Pro self-expanding 7 time 80 overlapping with Omnilink Elite 729 with excellent results. Still have significant disease at the common femoral artery which need monitoring, JAMISON post intervention was 0.94 on the right and 0.95 on the left with significant improvement. Her ulcer has healed initially, then she had a new ulcer for the past 2 months and she has been worsening, referred back by her primary care physician, she has missed her last appointment with us. Angiogram done yesterday with excellent results, findings described below. 1. Subtotal occlusion at the right common femoral artery and severe disease diffusely at the common iliac, successful balloon angioplasty using [place] 4 x 40 then Lutonix 5 x 100 with excellent results 2. Patent stent in the left common iliac artery, the sheath was occluding the common femoral artery. Patient had +2 pulse in the foot prior to the procedure 3. Mild aneurysmal dilatation in the abdominal aorta just above the bifurcation , mild diffuse disease in the abdominal aorta. Foot ulcer, pulses palpable, color is better, expecting healing of the wound Patient was started on heparin drip and IV fluid in preparation for the procedure Hyperlipidemia, I will start fish oil, LDL 125. Diabetes mellitus, followed and managed by primary care physician Tobaccoism, back to smoking, had a long discussion about smoking cessation. Multiple risk factors for coronary artery disease, Lexiscan stress test and 2-D echocardiogram done February 2016 negative for ischemia or infarct, normal EF. Continue to monitor. Noncompliance, patient did not show up for her appointment, has been having ulcer and cyanosis, referred back by Dr. Meade, reported that she thought that she was cured initially. I explained to her the importance of adherence to the plan and follow-up and maintenance and stop smoking and taking her medications. Labs Laboratory Tests 05/23/18 20:23: Red Blood Count 3.95L 05/24/18 05:05: Red Blood Count 3.85L, Mean Platelet Volume 10.7H, Chloride Level 108H, Glucose Level 117H, HDL Cholesterol 27L 05/24/18 11:10: Activated Partial Thromboplast Time > 200*H 05/24/18 13:01: Activated Partial Thromboplast Time 84H 05/24/18 20:05: 05/25/18 02:40: Activated Partial Thromboplast Time 37H 05/25/18 11:36: 05/25/18 17:23: 05/26/18 03:09: Red Blood Count 3.61L, Mean Platelet Volume 10.6H, Glucose Level 116H Procedures None. Discharge Physical Examination Allergies: Coded Allergies: cephalexin (Verified Allergy, Mild, RASH, 02/28/16) Vitals & I&Os Vital Signs Date Time Temp Pulse Resp B/P (MAP) Pulse Ox O2 Delivery O2 Flow Rate FiO2 05/26/18 04:00 95 Room Air 05/26/18 04:00 97.8 50 16 132/68 (89) General Appearance: Alert, Oriented X3, Cooperative, No Acute Distress HEENT: Atraumatic, PERRLA Respiratory: Clear to Auscultation, Normal Air Movement Cardiovascular: Regular Rate, Normal S1, Normal S2, No Murmurs Abdominal: Normal Bowel Sounds, Soft, No Tenderness, No Hepatosplenomegaly, No Masses Extremities: No Edema, No Tenderness/Swelling, Other (Ulcer on the foot with diminished pulses, significant improvement compared to yesterday) Skin: No Rashes, No Breakdown, No Significant Lesion Neuro: Normal Gait, Normal Speech, Strength at 5/5 X4 Ext, Normal Tone, Sensation Intact, Cranial Nerves 3-12 NL, Reflexes 2+ Psych/Mental Status: Mental Status NL, Mood NL Discharge Home Medications Reviewed and agree with Discharge Medication list on patient's Discharge Instruction sheet Instructions to Patient/Family Please see electronic discharge instructions given to patient. Clinical Quality Measures DVT/VTE Risk/Contraindication: Risk Factor Score Per Nursin RFS Level Per Nursing on Admit: 4+=Very High FARZANEH SKELTON MD May 26, 2018 07:57
[2018-05-26 08:00] VITALS: BP 158/80
== END 2018-05-26 08:55 | disposition home or self-care (01) | DRG 253 ==
LOC: ICU 17:17 → EDSTATUS 05-25 11:00
PROVIDERS: ADMIT Internal Medicine Cardiovascular Disease; ATTEND Internal Medicine Cardiovascular Disease
PROC: 047K3Z1 Dilation of Right Femoral Artery using Drug-Coated Balloon, Percutaneous Approach (ICD-10-PCS; principal; 2018-05-25)
PROC: 047C3Z1 Dilation of Right Common Iliac Artery using Drug-Coated Balloon, Percutaneous Approach (ICD-10-PCS; 2018-05-25)
PROC: B41D1ZZ Fluoroscopy of Aorta and Bilateral Lower Extremity Arteries using Low Osmolar Contrast (ICD-10-PCS; 2018-05-25)
DX: E11.52 Type 2 diabetes mellitus with diabetic peripheral angiopathy with gangrene (principal); I70.261 Atherosclerosis of native arteries of extremities with gangrene, right leg; I70.235 Atherosclerosis of native arteries of right leg with ulceration of other part of foot; L97.519 Non-pressure chronic ulcer of other part of right foot with unspecified severity; I70.292 Other atherosclerosis of native arteries of extremities, left leg; I10 Essential (primary) hypertension; E78.5 Hyperlipidemia, unspecified; F17.200 Nicotine dependence, unspecified, uncomplicated; Z95.820 Peripheral vascular angioplasty status with implants and grafts; Z91.19 Patient's noncompliance with other medical treatment and regimen; Z79.84 Long term (current) use of oral hypoglycemic drugs
CPT/HCPCS: 36415; 37220; 75625; 75716; 80048; 80053; 80061; 82962; 85027; 85049; 85610; 85730

== ENCOUNTER 2019-06-14 07:45 | Day surgery (SDC) | payer BC ==
[2019-06-14] VITALS (11 sets, daily range): BP systolic 118–172; BP diastolic 58–84
[~2019-06-14] VITALS: Ht 160 cm; Wt 69.4 kg
[~2019-06-14 07:45] MED LIST changes: -AMLO5TAB2 PO; +AMLO5TAB9 PO; +ATOR10TA PO; +LIDOCAINE 1% INJ 20 ML 20 ML VIAL ONE; +METF-397 PO; +METF-399 PO; -METF10002 PO
[2019-06-14] MEDS ORDERED: HEParin (CATH LAB) 2,000 ML IV ONE (07:46)
[2019-06-14] MEDS ORDERED: NS IV 1000 ML 1,000 ML ONE (07:46)
[2019-06-14] MEDS: NS IV 1000 ML 1,000 ML IV SCH ×3 (08:25→15:17)
[2019-06-14 08:31] LABS: MEAN PLATELET VOLUME 11.2 FL (7.4-10.4); RED CELL DISTRIBUTION WIDTH 12.8 % (10.0-14.5); WHITE BLOOD COUNT 6.6 10^3/uL (4.3-11.0)
[2019-06-14 08:32] LABS: BILIRUBIN,URINE NEGATIVE (NEGATIVE); CLARITY,URINE CLEAR; COLOR,URINE YELLOW; GLUCOSE, URINE (UA) NEGATIVE (NEGATIVE); KETONES,URINE NEGATIVE (NEGATIVE); LEUKOCYTE ESTERASE ,URINE NEGATIVE (NEGATIVE); NITRITE,URINE NEGATIVE (NEGATIVE); PH,URINE 6 (5-9); PROTEIN,URINE NEGATIVE (NEGATIVE); UROBILINOGEN,URINE NORMAL (NORMAL)
[2019-06-14] MEDS ORDERED: CLOP75TA69 PO (08:35)
[2019-06-14] MEDS ORDERED: ATOR10TA66 PO (08:35)
[2019-06-14] MEDS ORDERED: LISI-556 PO (08:35)
[2019-06-14 08:41] LABS: BACTERIA,URINE NEGATIVE /HPF
[2019-06-14 08:43] LABS: INR 0.9 (0.8-1.4); PROTHROMBIN TIME PATIENT 12.8 SEC (12.2-14.7)
--- NOTE | 2019-06-14 08:46 | NUR ---
SPOKE WITH PT AND WENT THRU THE EXTERNAL MED HISTORY TO COMPLETE THE MED REC. PT WAS ABLE TO TELL ME ALL HER MEDICATIONS AND HOW SHE TAKES THEM. OTC MEDS; ASPIRIN 81M DAILY FISH OIL 1000M CAPS DAILY Addendum: 06/14/19 at 0852 by ORLIN BENJAMIN [facility] ALSO CALLED [facility]ATE TO VERIFY LAST DATES FILLED, EVERYTHING WAS PICKED UP RECENTLY AND ALL WERE FILLED FOR 90 DAY SUPPLIES.
[2019-06-14 08:51] LABS: ALANINE AMINOTRANSFERASE 18 U/L (0-55); ALBUMIN 4.5 GM/DL (3.2-4.5); ALKALINE PHOSPHATASE 74 U/L (40-136); BILIRUBIN,TOTAL 0.5 MG/DL (0.1-1.0); BUN/CREATININE RATIO 14; CALCIUM 9.4 MG/DL (8.5-10.1); CARBON DIOXIDE 27 MMOL/L (21-32); CHLORIDE 107 MMOL/L (98-107); CHOLESTEROL 144 MG/DL (< 200); CREATININE SERUM 0.73 MG/DL (0.60-1.30); GFR ESTIMATED > 60; GLUCOSE 112 MG/DL (70-105); HDL CHOLESTEROL 45 MG/DL (40-60); POTASSIUM 3.7 MMOL/L (3.6-5.0); SODIUM 142 MMOL/L (135-145); TOTAL PROTEIN 7.8 GM/DL (6.4-8.2); TRIGLYCERIDES 102 MG/DL (<150); VLDL CHOLESTEROL 20 MG/DL (5-40)
--- NOTE | 2019-06-14 08:54 | Diagnostic Imaging Report ---
INDICATION: Preop, vascular disease. FINDINGS: The heart size and vascularity are within normal limits. No edema, pneumonia, effusion, or pneumothorax. IMPRESSION: Negative. Dictated by: Dictated on workstation # [id number]
[2019-06-14] MEDS ORDERED: fentaNYL INJECTION 100 MCG/2 ML AMP ONE ×2 (10:07→16:59)
[2019-06-14] MEDS ORDERED: MIDAZOLAM 5 MG/5 ML (VERSED) VIAL ONE (10:07)
--- NOTE | 2019-06-14 10:15 | Cardiac Procedure Note-CS/ASA ---
Pre-Procedure Note Pre-Op Procedure Note H&P Reviewed The H&P was reviewed, patient examined and no changes noted. Date H&P Reviewed: Jun 14, 2019 Time H&P Reviewed: 10:15 Conscious Sedation Pre-Proced Time 10:15 ASA Score 3 For ASA 3 and 4: Consider anesthesia and medical clearance. Also, for patients with a history of failed moderate sedation consider anesthesia. Airway Lungs Heart ASA score ASA 1: a normal healthy patient ASA 2: a patient with a mild systemic disease (mid diabetes, controlled hypertension, obesity x ASA 3: a patient with a severe systemic disease that limits activity (angina, COPD, prior Myocardial infarction) ASA 4: a patient with an incapacitating disease that is a constant threat to life (CHF, renal failure) ASA 5: a moribund patient not expected to survive 24 hrs. (ruptured aneurysm) ASA 6: a declared brain- patient whose organs are being harvested. For emergent operations, add the letter E after the classification Mallampati Classification Grade 3 Sedation Plan Analgesia, Amnesia, Plan communicated to team members, Discussed options with patient/fam, Discussed risks with patient/fam The patient is an appropriate candidate to undergo the planned procedure, sedation, and anesthesia. The patient immediately re-assessed prior to indication. FARZANEH SKELTON MD Jun 14, 2019 10:15
[2019-06-14] MEDS ORDERED: HEParin 1000 UNIT/ML (10ML VIAL) FOR BOLUS ONE (10:27)
[2019-06-14] MEDS ORDERED: NITRO DRIP 25000 MCG/D5W 250 ML IV ONE (11:01)
[2019-06-14] MEDS ORDERED: ASPIRIN 325 MG (5 GR) TABLET ONE (12:39)
[2019-06-14] MEDS ORDERED: CLOPIDOGREL 300 MG (PLAVIX) TABLET PO ONE ×2 (12:39→12:42)
[2019-06-14] MEDS ORDERED: PATIENT MAY USE OWN MEDS, ALL PO SCH (12:45)
--- NOTE | 2019-06-14 12:52 | Peripheral Report ---
Peripheral Report Physician (s)/Content Specialist (s) Physician FARZANEH SKELTON MD Pre-Procedure Diagnosis Pre-Procedure Diagnosis: claudication, peripheral arterial disease Post-Procedure Note Procedure Start Date: Jun 14, 2019 Name of Procedure: Abdominal aortogram with bilateral runoff Balloon angioplasty and stenting to the right common iliac and common femoral artery Balloon angioplasty to the left common iliac artery Findings/Procedure Note PROCEDURE NOTE: 54 years old lady with extensive peripheral arterial disease, multiple intervention the past, has been having increasing claudication and abnormal JAMISON bilaterally. After explaining the procedure to the patient, all pros and cons were explained, all questions were answered. The patient signed the consent and then she was placed on the cardiac catheterization laboratory. The patient was placed on the cardiac catheterization laboratory. Groin was prepped SL fashion local anesthesia was used. Sheath placed in the left femoral artery, pigtail catheter was advanced to the abdominal aorta and abdominal aortogram and evaluation of the bifurcation was done. Then patient was given 5000 units of heparin she was noted to have severe stenosis beyond the stent in the right common iliac and right common femoral and left common iliac artery. Long stork wire was advanced through the pigtail catheter to the left SFA, the sheath was exchanged into a long 6 [place] sheath placed in the right common iliac artery, I proceeded initially with balloon dilatation using [place] 6 x 100 mm with multiple inflation, angiogram showed small dissection and recoil in the area. I advanced a straight catheter down to the popliteal artery and evaluated the trifurcation with 2 separate injections then there was significant pressure gradient during pullback between the SFA and the right common iliac artery did multiple balloon angioplasties with different balloons without success. I proceeded with deployment of Absolute pro 6 x 80 was dilated, angiogram showed still persistent gradient beyond the stent I proceeded with deployment of another Absolute pro 6 x 60 mm, postdilated with 6 mm balloon, angiogram showed excellent results, regarding the left leg there was severe stenosis beyond the stent, I proceeded with balloon white earth after exchanging the sheath into short 6 Malay sheath and did balloon to the left common iliac and common femoral artery using 6 x 100 balloon with excellent results. Addendum the procedure sheath was sutured in place FINDINGS: Abdominal aortogram: Diffuse atherosclerotic plaque, mild stenosis of the left renal artery, mild disease of the right renal artery, SMA and LILIAM are normal. Bifurcation is normal. Below the bifurcation will be discussed separately. Left leg: Severe stenosis beyond the old stent, successful balloon angioplasty using [place] 6 x 100 with excellent results Right leg patent stent, mild in-stent restenosis severe stenosis beyond the stent, multiple balloon angioplasty with significant recoiling and dissection requiring 2 overlapping stent deployment using absolute Pro 6 x 80 mm and 6 x 60 mm postdilated, excellent angiographic results. SFA has small disease, small artery, beyond the trifurcation the posterior tibial artery has moderate disease with slow flow, small arteries. CONCLUSIONS: 1. Successful deployment of 2 overlapping absolute Pro stents 6 x 80 mm and 6 x 60 mm postdilated by 6 cm balloon with good results in the right common iliac and common femoral artery overlapping with old stents. 2. Successful balloon angioplasty to the left common iliac artery using 6 x 100 balloon with good results 3. Small vessel disease down at the foot level. Otherwise nonobstructive disease 4. Diffuse atherosclerotic plaques in the abdominal aorta. DISCUSSION AND RECOMMENDATIONS: continue to maximize medical therapy Anesthesia Type: Conscious Sedation Estimated blood loss (mL): 30 ml Contrast Amount: 147 ml Total Radiation Dose: 494 mGy Post-Procedure Diagnosis Post-operative diagnosis: Claudication Peripheral arterial disease Hypertension Hyperlipidemia FARZANEH SKELTON MD Jun 14, 2019 12:52
[2019-06-14] MEDS ORDERED: ATROPINE INJ 0.4 MG/ML SDV ONE (16:59)
[2019-06-14] MEDS ORDERED: fentaNYL INJECTION 100 MCG/2 ML AMP IVP ONE (18:45)
[2019-06-14] MEDS ORDERED: ONDANSETRON 4 MG/2 ML (SDV) Z0FRAN IVP NR (19:45)
[2019-06-15 00:13] VITALS: BP 132/75
[2019-06-15] MEDS: NS IV 1000 ML 1,000 ML IV SCH (02:31)
[2019-06-15 03:15] VITALS: BP 141/75
[2019-06-15 03:30] LABS: HEMOGLOBIN 11.9 G/DL (11.5-16.0); RED CELL DISTRIBUTION WIDTH 12.9 % (10.0-14.5); WHITE BLOOD COUNT 5.4 10^3/uL (4.3-11.0)
[2019-06-15 03:53] LABS: BUN/CREATININE RATIO 14; CALCIUM 8.8 MG/DL (8.5-10.1); CARBON DIOXIDE 22 MMOL/L (21-32); CHLORIDE 107 MMOL/L (98-107); CREATININE SERUM 0.65 MG/DL (0.60-1.30); GFR ESTIMATED > 60; GLUCOSE 120 MG/DL (70-105); POTASSIUM 4.2 MMOL/L (3.6-5.0); SODIUM 140 MMOL/L (135-145)
[2019-06-15 07:00] VITALS: BP 151/72
--- NOTE | 2019-06-15 08:13 | Discharge Inst-Post CATH ---
Discharge Inst-CATH/EP Problems Reviewed?: Yes Post Cardiac Cath/EP D/C Inst Follow Up/Plan Appointment with Dr. Liu's office in 2-4 weeks <b>CARDIAC CATH/EP PROCEDURE DISCHARGE INSTRUCTIONS</b> ACTIVITY * Go Home directly and rest. * Limit activity of the leg (or wrist if it was used) for 7 days including aerobics, swimming, jogging, bicycling, etc. * Restrict stair-climbing for 7 days if possible, if not, climb up with your non-cath leg, then bring together on the same step. * Avoid lifting, pushing, pulling or excessive movement of the affected extremity for 7 days. * Customary sexual activity may be resumed after 2 days-use caution not to use a position that strains or causes pain to the affected extremity. * No driving for 24 hours. * NO SMOKING. * Avoid straining for bowel movements for 7 days. * Gentle walking on level ground is allowed. * Returning to work will depend on the type of procedure and the results. Your doctor will discuss this with you. CALL YOUR DOCTOR FOR ANY OF THE FOLLOWING: *If bleeding from the puncture site occurs- Apply gentle pressure to site with clean cloth and call your doctor or EMS. * If a knot or lump forms under the skin, increases in size, or causes pain. * If bruising appears to be worsening or moving further down your leg instead of disappearing. * Temperature above 101 F. CARE OF YOUR GROIN INCISION; * Bruising or purple discoloration of the skin near the puncture site is common. * You may shower only, no bathtub bathing for 5 days. Be careful to avoid slipping as your leg may feel stiff. * If a closure device was used on your femoral artery, please see the attached guide regarding care of the device and your leg. * Leave dressing on FOR 24 hours. CARE OF YOUR WRIST INCISION; * Bruising or purple discoloration of the skin near the puncture site is common. * You may shower. * DO NOT submerge wrist. * Leave dressing on FOR 24 hours. FARZANEH LIU MD Jun 15, 2019 08:13
--- NOTE | 2019-06-15 08:15 | Cardiology Progress Note ---
Subjective Date Seen by Provider: Jun 15, 2019 Time Seen by Provider: 08:13 Subjective/Events-last exam Patient is feeling well, groin is healed well, excellent pedal pulse on the right, mildly diminished on the left Review of Systems General: No Chills, No Night Sweats, No Fatigue, No Malaise, No Appetite, No Other HEENT: No Head Aches, No Visual Changes, No Eye Pain, No Ear Pain, No Dysphasia, No Sinus Congestion, No Post Nasal Drip, No Sore Throat, No Other Pulmonary: No Dyspnea, No Cough, No Pleuritic Chest Pain, No Other Cardiovascular: No: Chest Pain, Palpitations, Orthopnea, Paroxysmal Noc. Dyspnea, Edema, Lt Headedness, Other Objective-Cardiology Exam Last Set of Vital Signs Vital Signs 06/15/19 03:15 Temp 97.7 Pulse 60 Resp 18 B/P (MAP) 141/75 (97) Pulse Ox 96 O2 Delivery Room Air Capillary Refill : Less Than 3 Seconds I&O Intake and Output 06/15/19 00:00 Intake Total 1000 ml Balance 1000 ml Intake IV Total 1000 ml General: Alert, Oriented X3, Cooperative HEENT: Atraumatic, PERRLA Neck: Supple, No JVD, No Thyromegaly Lungs: Clear to Auscultation, Normal Air Movement Heart: Regular Rate, Normal S1, Normal S2, No Murmurs Abdomen: Normal Bowel Sounds, Soft, No Tenderness, No Hepatosplenomegaly, No Masses Extremities: No Clubbing, No Cyanosis, No Edema, Normal Pulses, No Tenderness/ Swelling Skin: No Rashes, No Breakdown, No Significant Lesion Neuro: Normal Gait, Normal Speech, Strength at 5/5 X4 Ext, Normal Tone, Sensation Intact Psych/Mental Status: Mental Status NL, Mood NL Results Lab Laboratory Tests 06/14/19 08:24 06/15/19 03:21 A/P-Cardiology Admission Diagnosis Claudication Peripheral disease Hypertension Hyperlipidemia Assessment/Plan Claudication, improving Extensive peripheral arterial disease, complicated intervention as described below 1. Successful deployment of 2 overlapping absolute Pro stents 6 x 80 mm and 6 x 60 mm postdilated by 6 cm balloon with good results in the right common iliac and common femoral artery overlapping with old stents. 2. Successful balloon angioplasty to the left common iliac artery using 6 x 100 balloon with good results 3. Small vessel disease down at the foot level. Otherwise nonobstructive disease 4. Diffuse atherosclerotic plaques in the abdominal aorta. Hypertension, continue current medication monitor blood pressure Hyperlipidemia, continue current medication monitor lipids FARZANEH SKELTON MD Jun 15, 2019 08:15
[2019-06-15] MEDS ORDERED: OMEGA 3 (FISH OIL) 1000 MG CAP PO SCH (09:00)
[2019-06-15] MEDS ORDERED: ASPIRIN E.C. 81 MG (ECOTRIN) TAB PO SCH (09:00)
[2019-06-15] MEDS ORDERED: ATORVASTATIN 10 MG (LIPITOR) TABLET PO SCH (09:00)
[2019-06-15] MEDS ORDERED: CLOPIDOGREL 75 MG (PLAVIX) TABLET PO SCH (09:00)
[2019-06-15] MEDS ORDERED: lisINopril 5 MG (PRINIVIL) TABLET PO SCH (09:00)
== END 2019-06-15 09:25 | disposition home or self-care (01) ==
LOC: CATH 07:45 → ICU 13:00 → CATH 06-15 09:25
PROVIDERS: ATTEND Internal Medicine Cardiovascular Disease
DX: E11.51 Type 2 diabetes mellitus with diabetic peripheral angiopathy without gangrene (principal); I73.9 Peripheral vascular disease, unspecified; E78.5 Hyperlipidemia, unspecified; G93.2 Benign intracranial hypertension; Z87.891 Personal history of nicotine dependence; Z79.82 Long term (current) use of aspirin; Z79.01 Long term (current) use of anticoagulants; Z82.49 Family history of ischemic heart disease and other diseases of the circulatory system
CPT/HCPCS: 36415; 37220; 71045; 75630; 80048; 80053; 80061; 81000; 84703; 85027; 85610; 85730; 87081; 93005

== ENCOUNTER → 2020-08-07 | Outpatient (CLI) | payer BC ==
[~2020-08-07] VITALS: Ht 160 cm; Wt 71.0 kg
[~2020-08-07] MED LIST changes: +ASPI-1238 PO; -ASPI-983 PO; +CATHETER FLUSH 10 ML SYR IV PRN; -LIDOCAINE 1% INJ 20 ML 20 ML VIAL ONE; +LISI-556 PO; +REGADENOSON 0.4 MG/5 ML SYR (LEXISCAN) IV ONE; -TRAM50TA2 PO; +TRM50T PO
[2020-08-07 13:24] VITALS: BP 114/67
--- NOTE | 2020-08-07 16:06 | Cardiology Stress Test Report ---
Stress Test Report Date of Procedure/Referring: Date of Procedure: Aug 07, 2020 PCP Farzaneh Liu MD Admitting Physician Brian Avila MD Indications: Hypertension Baseline Heart Rate: 67 Baseline Blood Pressure: Blood Pressure Systolic: 114 Blood Pressure Diastolic: 67 Baseline Vitals Vital Signs Date Time Temp Pulse Resp B/P (MAP) Pulse Ox O2 Delivery O2 Flow Rate FiO2 08/07/20 13:24 67 114/67 (83) Baseline EKG: Baseline EKG: normal sinus rhythm Summary After explaining the procedure to the patient, she signed a consent and then brought to the stress nuclear laboratory. Patient received 0.4 mg Lexiscan for stress test, ECG, heart rate and blood pressure were monitored continuously. Resting and stress dose of radio tracer were injected, imaging was acquired and reviewed in short axis, horizontal long axis and vertical long axis views. TID: 1.07 SSS: 5 SDS: 5 EF: 70 1. Patient tolerated Lexiscan well 2. Mild decreased uptake at the mid to apical anterolateral and inferolateral wall with mild reversibility, could be secondary to breast attenuation 3. Normal left ventricular size, EF 70 percent FARZANEH LIU MD Aug 07, 2020 16:06
== END ==
LOC: CARD 10:00
PROVIDERS: ATTEND Internal Medicine Cardiovascular Disease
DX: I10 Essential (primary) hypertension (principal); I73.9 Peripheral vascular disease, unspecified; E11.9 Type 2 diabetes mellitus without complications
CPT/HCPCS: 78452; 93017; 93306; A9502

== ENCOUNTER 2020-08-14 13:00 | Day surgery (SDC) | payer BC ==
[~2020-08-14] VITALS: Ht 160 cm; Wt 68.0 kg
[2020-08-14] VITALS (11 sets, daily range): BP systolic 100–149; BP diastolic 52–136
[2020-08-14 11:44] LABS: BILIRUBIN,URINE NEGATIVE (NEGATIVE); CLARITY,URINE CLEAR; COLOR,URINE YELLOW; GLUCOSE, URINE (UA) 3+ (NEGATIVE); KETONES,URINE NEGATIVE (NEGATIVE); LEUKOCYTE ESTERASE ,URINE NEGATIVE (NEGATIVE); NITRITE,URINE NEGATIVE (NEGATIVE); PH,URINE 5.5 (5-9); PROTEIN,URINE NEGATIVE (NEGATIVE)
[2020-08-14 11:45] LABS: HEMOGLOBIN 14.7 g/dL (11.5-16.0); MEAN PLATELET VOLUME 11.3 fL (9.0-12.2); WHITE BLOOD COUNT 6.7 10^3/uL (4.3-11.0)
--- NOTE | 2020-08-14 11:52 | NUR ---
SPOKE WITH THE PT (SHE HAS HER MED BOTTLES WITH HER) TO COMPLETE THE MED REC THE FOLLOWING MEDS WERE FILLED ON 06-06-2020: ATORVASTATIN 10MG #90/90DS LISINOPRIL 10MG #90/90DS CLOPIDOGREL 75MG #90/90DS OTC MEDS: ASPIRIN 81MG FISH OIL (PT DOES NOT HAVE THIS WITH HER)
[2020-08-14 11:54] LABS: BACTERIA,URINE MODERATE /HPF
--- NOTE | 2020-08-14 12:05 | Diagnostic Imaging Report ---
INDICATION: Peripheral vascular disease, claudication, diabetes. COMPARISON: 06/14/2019. TECHNIQUE: Single radiograph of the chest dated 08/14/2020. FINDINGS: The cardiac silhouette and pulmonary vasculature are within normal limits in size. The lungs are clear of focal pulmonary opacity. Stable calcified granuloma overlying the right lung base. No pleural effusion. No pneumothorax. No acute osseous abnormality. IMPRESSION: Stable examination without acute cardiopulmonary abnormality. Dictated by: Dictated on workstation # [id number]
[2020-08-14 12:06] LABS: INR 0.9 (0.8-1.4)
[2020-08-14 12:08] LABS: ALBUMIN 4.4 GM/DL (3.2-4.5); BILIRUBIN,TOTAL 0.4 MG/DL (0.1-1.0); CALCIUM 9.1 MG/DL (8.5-10.1); CREATININE SERUM 0.98 MG/DL (0.60-1.30); POTASSIUM 3.8 MMOL/L (3.6-5.0); TOTAL PROTEIN 7.9 GM/DL (6.4-8.2)
--- NOTE | 2020-08-14 12:23 | Cardiac Procedure Note-CS/ASA ---
Pre-Procedure Note Pre-Op Procedure Note H&P Reviewed The H&P was reviewed, patient examined and no changes noted. Date H&P Reviewed: Aug 14, 2020 Time H&P Reviewed: 12:23 Conscious Sedation Pre-Proced Time 12:23 ASA Score 3 For ASA 3 and 4: Consider anesthesia and medical clearance. Also, for patients with a history of failed moderate sedation consider anesthesia. Airway Lungs Heart ASA score ASA 1: a normal healthy patient ASA 2: a patient with a mild systemic disease (mid diabetes, controlled hypertension, obesity x ASA 3: a patient with a severe systemic disease that limits activity (angina, COPD, prior Myocardial infarction) ASA 4: a patient with an incapacitating disease that is a constant threat to life (CHF, renal failure) ASA 5: a moribund patient not expected to survive 24 hrs. (ruptured aneurysm) ASA 6: a declared brain- patient whose organs are being harvested. For emergent operations, add the letter E after the classification Mallampati Classification Grade 3 Sedation Plan Analgesia, Amnesia, Plan communicated to team members, Discussed options with patient/fam, Discussed risks with patient/fam The patient is an appropriate candidate to undergo the planned procedure, sedation, and anesthesia. The patient immediately re-assessed prior to indication. FARZANEH SKELTON MD Aug 14, 2020 12:23
[~2020-08-14 13:00] MED LIST changes: +AMLO-250 PO; -AMLO5TAB9 PO; -CATHETER FLUSH 10 ML SYR IV PRN; +HEParin (CATH LAB) 2,000 ML IV ONE; +LIDOCAINE 1% INJ 20 ML 20 ML VIAL ONE; +LISI10TA2 PO; +MIDAZOLAM 5 MG/5 ML (VERSED) VIAL ONE; +NS IV 1000 ML 1,000 ML IV SCH; +NS IV 1000 ML 1,000 ML ONE; -REGADENOSON 0.4 MG/5 ML SYR (LEXISCAN) IV ONE; +fentaNYL INJECTION 100 MCG/2 ML AMP ONE
[2020-08-14] MEDS ORDERED: HEParin 1000 UNIT/ML (10ML VIAL) FOR BOLUS ONE (13:02)
[2020-08-14] MEDS ORDERED: PATIENT MAY USE OWN MEDS, ALL PO SCH (14:00)
--- NOTE | 2020-08-14 14:06 | Peripheral Report ---
Peripheral Report Physician (s)/Scrap Shear Operator (s) Physician FARZANEH SKELTON MD Pre-Procedure Diagnosis Pre-Procedure Diagnosis: claudication, peripheral arterial disease Post-Procedure Note Procedure Start Date: Aug 14, 2020 Name of Procedure: Bilateral lower extremity runoff Second order Additional imaging SEO SPECIALIST to the left SFA, common femoral, external iliac, common iliac arteries Findings/Procedure Note PROCEDURE NOTE: 55-year-old lady with extensive peripheral arterial disease, multiple intervention the past, has been having increasing claudication abnormal JAMISON. Scheduled for peripheral angiogram possible angioplasty. After explaining the procedure to the patient, all pros and cons were explained, all questions were answered. The patient signed the consent and then she was placed on the cardiac catheterization laboratory. The patient was placed on the cardiac catheterization laboratory. Groin was prepped SL fashion local anesthesia was used. Sheath placed in the right femoral artery, runoff to the right leg was done. Then I advanced rim catheter and did runoff to the left leg which showed subtotal occlusion at the common femoral artery and ostial SFA and severe stenosis at the external iliac. Stent were patent and the common iliac. Patient was given 4000 units of heparin, the wire was advanced and parked in the distal SFA. Using Storq wire. I removed the 6 [place] sheath and try to advance long 6 [place] sheath across the bifurcation without success due to the stent. I advanced a straight catheter and did runoff exchange the wire and used a new wire and did a stronger curve on the sheath and was able to introduce it back to the external iliac artery, [id number] I performed balloon angioplasty to the subtotal occlusion of the ostial SFA and common femoral artery using 4 x 100 [place] balloon, then I advanced 6 x 40 balloon and did angioplasty to the external iliac artery then pulled the sheath out and didn't balloon angioplasty and opting back the stent in the common iliac and external iliac artery, the balloon was removed I advanced a straight catheter to the common femoral artery and runoff to the leg was done then I did DSA imaging at the level of the foot, the sheath was exchanged to a short 6F and rim catheter introduced back to the abdominal aorta and angiogram to evaluate the bifurcation was made. Addendum of the procedure sheath was sutured in place FINDINGS: Right lower extremity runoff: Done through the sheath good flow, the sheath was almost obstructing the SFA, there was slow flow but no significant obstructive disease Left lower extremity runoff, subtotal occlusion at the common femoral and ostial SFA, complex intervention with balloon angioplasty to the left proximal SFA, common femoral artery using 4 x 100 balloon and balloon angioplasty to the left external iliac and common iliac arteries with excellent results. Good flow down to the foot. CONCLUSIONS: 1. Severe left common femoral artery stenosis with successful balloon angioplasty and excellent results 2. Severe stenosis at the ostial left superficial femoral artery with successful balloon angioplasty and excellent results 3. Moderate stenosis at the left external iliac artery with balloon angioplasty to the left external iliac artery and left common iliac artery with excellent results 4. Small arteries below the trifurcation bilaterally with slow flow. No significant obstructive disease DISCUSSION AND RECOMMENDATIONS: Continue to maximize medical therapy Anesthesia Type: Conscious Sedation Estimated blood loss (mL): 35 ml Contrast Amount: 65 ml Post-Procedure Diagnosis Post-operative diagnosis: Claudication Peripheral arterial disease Hypertension Hyperlipidemia FARZANEH SKELTON MD Aug 14, 2020 14:06
[2020-08-14] MEDS ORDERED: CLOPIDOGREL 300 MG (PLAVIX) TABLET PO ONE (14:22)
[2020-08-14] MEDS ORDERED: ASPIRIN 325 MG (5 GR) TABLET ONE (14:22)
[2020-08-14] MEDS: NS IV 1000 ML 1,000 ML IV SCH (16:34)
[2020-08-15] MEDS: NS IV 1000 ML 1,000 ML IV SCH (01:03)
--- NOTE | 2020-08-15 03:45 | NUR ---
ASSUMED CARE OF PT AT THIS TIME. ALERT AND ORIENTED. PT ON RA. RIGHT GROIN SITE SOFT, DRESSING DRY AND INTACT. PT HAS NO C/O AT THIS TIME. WILL CONTINUE TO MONITOR.
[2020-08-15 04:00] VITALS: BP 142/68
[2020-08-15 04:02] LABS: HEMOGLOBIN 13.1 g/dL (11.5-16.0); MEAN PLATELET VOLUME 11.7 fL (9.0-12.2); WHITE BLOOD COUNT 6.6 10^3/uL (4.3-11.0)
[2020-08-15 04:18] LABS: ALBUMIN 3.9 GM/DL (3.2-4.5)
[2020-08-15 04:19] LABS: CHLORIDE 100 MMOL/L (98-107); POTASSIUM 4.1 MMOL/L (3.6-5.0); SODIUM 132 MMOL/L (135-145)
[2020-08-15 04:20] LABS: CALCIUM 8.5 MG/DL (8.5-10.1)
[2020-08-15 04:21] LABS: GLUCOSE 342 MG/DL (70-105); TOTAL PROTEIN 6.9 GM/DL (6.4-8.2)
[2020-08-15 04:22] LABS: CARBON DIOXIDE 22 MMOL/L (21-32)
[2020-08-15 04:23] LABS: BILIRUBIN,TOTAL 0.3 MG/DL (0.1-1.0)
[2020-08-15 04:24] LABS: ALKALINE PHOSPHATASE 82 U/L (40-136); CREATININE SERUM 0.81 MG/DL (0.60-1.30); GFR ESTIMATED > 60
[2020-08-15 04:26] LABS: BUN/CREATININE RATIO 20
[2020-08-15 04:27] LABS: ALANINE AMINOTRANSFERASE 20 U/L (0-55)
--- NOTE | 2020-08-15 05:48 | Discharge Inst-Post CATH ---
Discharge Inst-CATH/EP Problems Reviewed?: Yes Post Cardiac Cath/EP D/C Inst Follow Up/Plan Appointment with Dr Liu in 2-4 weeks <b>CARDIAC CATH/EP PROCEDURE DISCHARGE INSTRUCTIONS</b> ACTIVITY * Go Home directly and rest. * Limit activity of the leg (or wrist if it was used) for 7 days including aerobics, swimming, jogging, bicycling, etc. * Restrict stair-climbing for 7 days if possible, if not, climb up with your non-cath leg, then bring together on the same step. * Avoid lifting, pushing, pulling or excessive movement of the affected extremity for 7 days. * Customary sexual activity may be resumed after 2 days-use caution not to use a position that strains or causes pain to the affected extremity. * No driving for 24 hours. * NO SMOKING. * Avoid straining for bowel movements for 7 days. * Gentle walking on level ground is allowed. * Returning to work will depend on the type of procedure and the results. Your doctor will discuss this with you. CALL YOUR DOCTOR FOR ANY OF THE FOLLOWING: *If bleeding from the puncture site occurs- Apply gentle pressure to site with clean cloth and call your doctor or EMS. * If a knot or lump forms under the skin, increases in size, or causes pain. * If bruising appears to be worsening or moving further down your leg instead of disappearing. * Temperature above 101 F. CARE OF YOUR GROIN INCISION; * Bruising or purple discoloration of the skin near the puncture site is common. * You may shower only, no bathtub bathing for 5 days. Be careful to avoid slipping as your leg may feel stiff. * If a closure device was used on your femoral artery, please see the attached guide regarding care of the device and your leg. * Leave dressing on FOR 24 hours. CARE OF YOUR WRIST INCISION; * Bruising or purple discoloration of the skin near the puncture site is common. * You may shower. * DO NOT submerge wrist. * Leave dressing on FOR 24 hours. FARZANEH LIU MD Aug 15, 2020 05:48
[2020-08-15 08:00] VITALS: BP 149/72
--- NOTE | 2020-08-15 08:20 | NUR ---
DRSG REMOVED RT GROIN AND BAND AID APPLIED. SITE CLEAR.
--- NOTE | 2020-08-15 08:37 | Cardiology Progress Note ---
Subjective Date Seen by Provider: Aug 15, 2020 Time Seen by Provider: 08:35 Subjective/Events-last exam Patient was seen at bedside, feeling better. No new complaint Groin is healing well Review of Systems General: No Chills, No Night Sweats, No Fatigue, No Malaise, No Appetite, No Other HEENT: No Head Aches, No Visual Changes, No Eye Pain, No Ear Pain, No Dysphas ia, No Sinus Congestion, No Post Nasal Drip, No Sore Throat, No Other Pulmonary: No Dyspnea, No Cough, No Pleuritic Chest Pain, No Other Cardiovascular: No: Chest Pain, Palpitations, Orthopnea, Paroxysmal Noc. Dyspnea, Edema, Lt Headedness, Other Objective-Cardiology Exam Last Set of Vital Signs Vital Signs 08/15/20 08/15/20 04:00 04:22 Temp 36.8 Pulse 66 Resp 18 B/P (MAP) 142/68 (92) Pulse Ox 95 O2 Delivery Room Air Capillary Refill : Less Than 3 Seconds I&O Intake and Output 08/15/20 00:00 Intake Total 740 ml Balance 740 ml Intake Oral 740 ml # Voids 4 Daily Weight Change No No General: Alert, Oriented X3, Cooperative HEENT: Atraumatic, PERRLA Neck: Supple, No JVD, No Thyromegaly Lungs: Clear to Auscultation, Normal Air Movement Heart: Regular Rate, Normal S1, Normal S2, No Murmurs Abdomen: Normal Bowel Sounds, Soft, No Tenderness, No Hepatosplenomegaly, No Masses Extremities: No Clubbing, No Cyanosis, No Edema, Normal Pulses, No Tenderness/Swelling Skin: No Rashes, No Breakdown, No Significant Lesion Neuro: Normal Gait, Normal Speech, Strength at 5/5 X4 Ext, Normal Tone, Sensation Intact Psych/Mental Status: Mental Status NL, Mood NL Results Lab Laboratory Tests 08/14/20 11:34 08/15/20 03:21 A/P-Cardiology Admission Diagnosis Peripheral arterial disease Claudication Hypertension Hyperlipidemia Assessment/Plan Peripheral arterial disease, complex intervention with balloon angioplasty to the left common iliac artery, external iliac artery, common femoral artery and superficial femoral artery with excellent results. Palpable dorsalis pedis pulse today and feeling better Hypertension, continue current medication monitor next Hyperlipidemia, monitor lipids Clinical Quality Measures DVT/VTE Risk/Contraindication: Risk Factor Score Per Nursin RFS Level Per Nursing on Admit: 1=Low/No VTE PPX FARZANEH SKELTON MD Aug 15, 2020 8:37 am
--- NOTE | 2020-08-15 08:45 | NUR ---
TELE DCD. IV DCD. INST GIVEN AND VERBALIZED UNDERSTANDING.
[2020-08-15] MEDS ORDERED: CLOPIDOGREL 75 MG (PLAVIX) TABLET PO SCH (09:00)
[2020-08-15] MEDS ORDERED: OMEGA 3 (FISH OIL) 1000 MG CAP PO SCH ×2 (09:00)
[2020-08-15] MEDS ORDERED: ASPIRIN E.C. 81 MG (ECOTRIN) TAB PO SCH (09:00)
[2020-08-15] MEDS ORDERED: lisINopril 10 MG (PRINIVIL) TABLET PO SCH (09:00)
--- NOTE | 2020-08-15 09:10 | NUR ---
DC'D PER WC WITH TITLE I DIRECTOR.
== END 2020-08-15 09:10 | disposition home or self-care (01) ==
LOC: CATH 13:00 → ICU 14:34 → 4TH 08-15 04:29 → CATH 08-15 09:10
PROVIDERS: ATTEND Internal Medicine Cardiovascular Disease
DX: I70.202 Unspecified atherosclerosis of native arteries of extremities, left leg (principal); I10 Essential (primary) hypertension; E78.5 Hyperlipidemia, unspecified; I65.23 Occlusion and stenosis of bilateral carotid arteries; Z87.891 Personal history of nicotine dependence; E11.621 Type 2 diabetes mellitus with foot ulcer; L97.509 Non-pressure chronic ulcer of other part of unspecified foot with unspecified severity; Z79.82 Long term (current) use of aspirin; Z79.899 Other long term (current) drug therapy; Z11.2 Encounter for screening for other bacterial diseases; R82.90 Unspecified abnormal findings in urine
CPT/HCPCS: 36246; 36248; 37220; 37222; 37224; 71045; 75716; 80053 ×2; 80061; 81000; 82962; 85027 ×2; 85610; 85730; 87077; 87081; 87088; 87186; C1725 ×2; C1769; C1887 ×2; C1894 ×2; 36415

== ENCOUNTER 2021-11-26 10:48 | Emergency (ER) | payer BC ==
[~2021-11-26] VITALS: Ht 160 cm; Wt 69.5 kg
[~2021-11-26 10:48] MED LIST changes: -HEParin (CATH LAB) 2,000 ML IV ONE; -LIDOCAINE 1% INJ 20 ML 20 ML VIAL ONE; -LISI-556 PO; -LISI10TA2 PO; +LISI10TA25 PO; +LISI5TAB20 PO; -MIDAZOLAM 5 MG/5 ML (VERSED) VIAL ONE; -NS IV 1000 ML 1,000 ML IV SCH; -NS IV 1000 ML 1,000 ML ONE; -fentaNYL INJECTION 100 MCG/2 ML AMP ONE
--- NOTE | 2021-11-26 11:10 | ED Lower Extremity ---
General Chief Complaint: Lower Extremity Stated Complaint: DIABETIC/L FOOT WOUND Source: patient Exam Limitations: no limitations History of Present Illness Date Seen by Provider: Nov 26, 2021 Time Seen by Provider: 11:00 Initial Comments To ER by private vehicle with reports of a wound to the left great toe that started as an ingrown toenail back in August. She was seen by primary care at that time and had initially some antibiotics. She then went back last week and requested more antibiotics but was instead referred to the emergency room. This "pissed her off" so she went home and smoked a cigarette instead of coming to the emergency room. She quit smoking prior to yesterday and only had 1 cigarette yesterday but she does have an extensive smoking history. She has a history of severe peripheral arterial disease with angioplasty in the past. She has seen Dr. Liu from cardiology here for that. She states that she is supposed to be on atorvastatin and Plavix but she could not afford them in August so she quit taking them. She denies fevers or chills. Minimal pain but occasionally the toes go numb. The left great toe is tender only with movement. Onset: other Severity: moderate Pain/Injury Location: left 1st toe Method of Injury: unknown Modifying Factors: Worse With Movement Allergies and Home Medications Allergies Coded Allergies: cephalexin (Verified Allergy, Mild, RASH, 02/28/16) Patient Home Medication List Home Medication List Reviewed: Yes Aspirin (Aspirin EC) 81 Mg Tablet.dr, 81 MG PO DAILY, (Reported) Entered as Reported by: ANDREW THURSTON on 11/11/16 1204 Atorvastatin Calcium (Atorvastatin Calcium) 10 Mg Tablet, 10 MG PO DAILY, (Reported) Entered as Reported by: ORLIN BENJAMIN on 06/14/19 0835 Clopidogrel Bisulfate (Plavix) 75 Mg Tablet, 75 MG PO DAILY, (Reported) Entered as Reported by: ORLIN BENJAMIN on 06/14/19 0835 Lisinopril (Lisinopril) 10 Mg Tablet, 10 MG PO DAILY, (Reported) Entered as Reported by: ORLIN BENJAMIN on 08/14/20 1152 [place] 3 Polyunsat Fatty Acids (Fish Oil 1,000 mg Capsule) 1,000 Mg Cap, 3,000 MG PO DAILY, (Reported) Entered as Reported by: ANDREW THURSTON on 1/25/17 1204 Review of Systems Constitutional: see HPI EENTM: see HPI Respiratory: no symptoms reported Cardiovascular: no symptoms reported Genitourinary: no symptoms reported Musculoskeletal: see HPI Skin: no symptoms reported Psychiatric/Neurological: No Symptoms Reported Past Ryynsup-Pmsamv-Dbkkbx Hx Seasonal Allergies Seasonal Allergies: No Past Medical History Surgeries: Yes Eye Surgery Respiratory: No Currently Using CPAP: No Currently Using BIPAP: No Cardiac: No Neurological: No Sexually Transmitted Disease: No HIV/AIDS: No Genitourinary: No Gastrointestinal: No Musculoskeletal: No Endocrine: Yes HEENT: No Cancer: No Psychosocial: No Integumentary: No Blood Disorders: No Adverse Reaction/Blood Tranf: No Physical Exam Vital Signs Vital Signs - First Documented 11/26/21 11:00 Temp 35.7 Pulse 73 Resp 18 B/P (MAP) 169/70 (103) Pulse Ox 96 Capillary Refill : Height, Weight, BMI Height: 5'3.00" Weight: 153lbs. 0.0oz. [id number]; 26.17 BMI Method: General Appearance: WD/WN, no apparent distress HEENT: PERRL/EOMI, normal ENT inspection Neck: non-tender, full range of motion Respiratory: no respiratory distress, no accessory muscle use Hips: bilateral hip non-tender, bilateral hip normal inspection, bilateral hip normal range of motion Legs: bilateral leg non-tender, bilateral leg normal inspection, bilateral leg normal range of motion Knees: bilateral knee non-tender, bilateral knee normal inspection, bilateral knee normal range of motion Ankles: bilateral ankle non-tender, bilateral ankle normal inspection, bilateral ankle normal range of motion Feet: left foot other (Left great toe over the medial aspect has some necrotic tissue at the medial nail fold. No purulence able to be expressed. There is some erythema/purplish discoloration with brisk capillary refill of the left great toe. She also has some purplish discoloration of the middle toe and the little toe. She does not have a palpable dorsalis pedis pulse but we are able to Doppler blood flow with ease in that artery. Combined with a capillary refill this is nonischemic foot) Neurologic/Psychiatric: alert, normal mood/affect, oriented x 3 Skin: normal color, warm/dry Progress/Results/Core Measures Results/Orders Lab Results Laboratory Tests Test 11/26/21 11:14 Range/Units White Blood Count 7.0 4.3-11.0 10^3/uL Red Blood Count 4.69 3.80-5.11 10^6/uL Hemoglobin 14.7 11.5-16.0 g/dL Hematocrit 43 35-52 % Mean Corpuscular Volume 93 80-99 fL Mean Corpuscular Hemoglobin 31 25-34 pg Mean Corpuscular Hemoglobin Concent 34 32-36 g/dL Red Cell Distribution Width 12.0 10.0-14.5 % Platelet Count 171 130-400 10^3/uL Mean Platelet Volume 11.3 9.0-12.2 fL Immature Granulocyte % (Auto) 0 % Neutrophils (%) (Auto) 61 42-75 % Lymphocytes (%) (Auto) 28 12-44 % Monocytes (%) (Auto) 8 0-12 % Eosinophils (%) (Auto) 1 0-10 % Basophils (%) (Auto) 1 0-10 % Neutrophils # (Auto) 4.2 1.8-7.8 10^3/uL Lymphocytes # (Auto) 2.0 1.0-4.0 10^3/uL Monocytes # (Auto) 0.6 0.0-1.0 10^3/uL Eosinophils # (Auto) 0.1 0.0-0.3 10^3/uL Basophils # (Auto) 0.1 0.0-0.1 10^3/uL Immature Granulocyte # (Auto) 0.0 0.0-0.1 10^3/uL Erythrocyte Sedimentation Rate 18 0-30 MM/HR Prothrombin Time 11.6 L 12.2-14.7 SEC INR Comment 0.8 0.8-1.4 Sodium Level 135 135-145 MMOL/L Potassium Level 3.6 3.6-5.0 MMOL/L Chloride Level 101 98-107 MMOL/L Carbon Dioxide Level 22 21-32 MMOL/L Anion Gap 12 5-14 MMOL/L Blood Urea Nitrogen 13 7-18 MG/DL Creatinine 0.84 0.60-1.30 MG/DL Estimat Glomerular Filtration Rate 81 BUN/Creatinine Ratio 15 Glucose Level 424 *H 70-105 MG/DL Calcium Level 8.9 8.5-10.1 MG/DL Corrected Calcium 8.8 8.5-10.1 MG/DL Total Bilirubin 0.3 0.1-1.0 MG/DL Aspartate Amino Transf (AST/SGOT) 9 5-34 U/L Alanine Aminotransferase (ALT/SGPT) 15 0-55 U/L Alkaline Phosphatase 102 40-136 U/L C-Reactive Protein High Sensitivity 1.14 H 0.00-0.50 MG/DL Total Protein 7.7 6.4-8.2 GM/DL Albumin 4.1 3.2-4.5 GM/DL My Orders Orders - BRIAN SUAZO APRN Cbc With Automated Diff (11/26/21 11:04) Comprehensive Metabolic Panel (11/26/21 11:04) Protime With Inr (11/26/21 11:04) Erythrocyte Sedimentation Rate (11/26/21 11:04) Hs C Reactive Protein (11/26/21 11:04) Foot, Left, 3 Views (11/26/21 11:04) Ed Iv/Invasive Line Start (11/26/21 11:04) Vital Signs/I&O 11/26/21 11:00 Temp 35.7 Pulse 73 Resp 18 B/P (MAP) 169/70 (103) Pulse Ox 96 Departure Communication (Admissions) NAME: JEFFERY SIMMS [facility] REC#: [id number] PT STATUS: REG ER : 1965 PHYSICIAN: BRIAN SUAZO APRN ADMIT DATE: 11/26/21/ER Draft Date of Exam:11/26/21 FOOT, LEFT, 3 VIEWS INDICATION: Infected left great toe. TIME OF EXAM: 11:23 a.m. FINDINGS: Three views of the left foot were obtained. There is some lucency in the soft tissues of the medial great toe distally, which could represent a minimal amount of soft tissue gas. Underlying distal phalanx and proximal phalanx appear to be unremarkable. No definite periosteal reaction or bony destructive changes are seen to suggest osteomyelitis. The remaining phalanges as well as the metatarsals are intact. There is midfoot degenerative change. No fractures are seen. IMPRESSION: There is questionable soft tissue gas in the great toe, as described. No underlying bony destructive changes to suggest osteomyelitis are identified. Dictated on workstation # [id number] Dict: 11/26/21 1126 Trans: 11/26/21 1133 [id number] Interpreted by: MABLE KELLOGG MD Electronically signed by: Impression Primary Impression: Diabetic foot infection Additional Impression: Hyperglycemia Disposition: 01 HOME, SELF-CARE Condition: Stable Departure-Patient Inst. Decision time for Depature: 11:55 Referrals: [facility] (PCP) Primary Care Physician CALE SHANNON MD (Family) Primary Care Physician Patient Instructions: High Blood Sugar, Adult ED Add. Discharge Instructions: 1. Take the antibiotics as directed. You will need to follow-up with your primary care provider. Call today to make an appointment to be seen as soon as they can see you as you will likely need more medications to control your diabetes perhaps oral medications or in the form of insulin. You will need to follow-up with them to ensure that this foot wound is healing. The x-rays look okay without evidence of bone involvement. All discharge instructions reviewed with patient and/or family. Voiced understanding. Scripts Doxycycline Hyclate (Doxycycline Hyclate) 100 Mg Tablet 100 MG PO BID, #20 TAB 0 Refills Prov: BRIAN SUAZO APRN 11/26/21 BRIAN SUAZO APRN Nov 26, 2021 11:10
[2021-11-26 11:21] LABS: BASOPHILS # (AUTO) 0.1 10^3/uL (0.0-0.1); BASOPHILS % (AUTO) 1 % (0-10); EOSINOPHILS # (AUTO) 0.1 10^3/uL (0.0-0.3); EOSINOPHILS % (AUTO) 1 % (0-10); HEMATOCRIT 43 % (35-52); HEMOGLOBIN 14.7 g/dL (11.5-16.0); LYMPHOCYTES % (AUTO) 28 % (12-44); MEAN CORPUSCULAR HEMOGLOBIN 31 pg (25-34); MEAN CORPUSCULAR HGB CONC 34 g/dL (32-36); MEAN CORPUSCULAR VOLUME 93 fL (80-99); MEAN PLATELET VOLUME 11.3 fL (9.0-12.2); MONOCYTES # (AUTO) 0.6 10^3/uL (0.0-1.0); MONOCYTES % (AUTO) 8 % (0-12); NEUTROPHILS # (AUTO) 4.2 10^3/uL (1.8-7.8); NEUTROPHILS % (AUTO) 61 % (42-75); PLATELET COUNT 171 10^3/uL (130-400)
[2021-11-26 11:31] LABS: ALBUMIN 4.1 GM/DL (3.2-4.5); POTASSIUM 3.6 MMOL/L (3.6-5.0)
[2021-11-26 11:32] LABS: CALCIUM 8.9 MG/DL (8.5-10.1)
[2021-11-26 11:34] LABS: TOTAL PROTEIN 7.7 GM/DL (6.4-8.2)
--- NOTE | 2021-11-26 11:34 | Diagnostic Imaging Report ---
INDICATION: Infected left great toe. TIME OF EXAM: 11:23 a.m. FINDINGS: Three views of the left foot were obtained. There is some lucency in the soft tissues of the medial great toe distally, which could represent a minimal amount of soft tissue gas. Underlying distal phalanx and proximal phalanx appear to be unremarkable. No definite periosteal reaction or bony destructive changes are seen to suggest osteomyelitis. The remaining phalanges as well as the metatarsals are intact. There is midfoot degenerative change. No fractures are seen. IMPRESSION: There is questionable soft tissue gas in the great toe, as described. No underlying bony destructive changes to suggest osteomyelitis are identified. Dictated by: Dictated on workstation # [id number]
[2021-11-26 11:35] LABS: BILIRUBIN,TOTAL 0.3 MG/DL (0.1-1.0)
[2021-11-26 11:37] LABS: CREATININE SERUM 0.84 MG/DL (0.60-1.30)
[2021-11-26 11:39] LABS: INR 0.8 (0.8-1.4); PROTHROMBIN TIME PATIENT 11.6 SEC (12.2-14.7)
[2021-11-26 11:52] LABS: ERYTHROCYTE SEDIMENTATION RATE 18 MM/HR (0-30)
[2021-11-26] MEDS ORDERED: DOXY100T2 PO (11:56)
[2021-11-26] MEDS ORDERED: inSUlin (REGULAR) HUMAN 1 UNIT/0.01 ML (CHARGE PER UNIT) SC ONE (12:00)
[2021-11-26 12:04] VITALS: BP 152/61
== END 2021-11-26 12:08 | disposition home or self-care (01) ==
LOC: EDUNIT# 10:48 → ER 10:50
DX: E11.621 Type 2 diabetes mellitus with foot ulcer (principal); E11.65 Type 2 diabetes mellitus with hyperglycemia; Z87.891 Personal history of nicotine dependence; Z79.01 Long term (current) use of anticoagulants; Z79.82 Long term (current) use of aspirin
CPT/HCPCS: 36415; 73630; 80053; 85025; 85610; 85652; 86141

== ENCOUNTER 2022-01-02 10:18 | Emergency (ER) | payer BC ==
[~2022-01-02] VITALS: Ht 160 cm; Wt 63.5 kg
[~2022-01-02 10:18] MED LIST changes: +DOXY100T2 PO
[2022-01-02 11:08] VITALS: BP 168/84
--- NOTE | 2022-01-02 11:24 | ED Lower Extremity ---
General Chief Complaint: Lower Extremity Stated Complaint: LEFT BIG TOE REDNESS/SWELLING Nursing Triage Note: PT AMB TO FT 3 W C/O LEFT GREAT TOE SWELLING AND REDNESS. 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 PT DENIES PAIN, A&OX4. Source: patient Exam Limitations: no limitations (BRIAN SUAZO APRN) History of Present Illness Date Seen by Provider: Jan 02, 2022 Time Seen by Provider: 11:20 Initial Comments To ER with an ongoing left great toe infection. This began in August as "an ingrown toenail". I saw her here November 26 for the same, gave her a prescription for doxycycline and did an x-ray which showed no evidence of bony erosion though there was some soft tissue gas. At that time there was no discharge or drainage. Today she reports that she has had some whitish drainage from the toe. She has not followed up with anyone. She does have an extensive smoking history. She has a history of severe peripheral arterial disease with angioplasty in the past. She has seen Dr. Liu from cardiology here for that. She states that she is supposed to be on atorvastatin and Plavix but she could not afford them in August so she quit taking them. She denies fevers or chills. Minimal pain but occasionally the toes go numb. The left great toe is tender only with movement. Onset: other Severity: moderate Pain/Injury Location: left 1st toe Modifying Factors: Worse With Movement (BRIAN SUAZO APRN) Allergies and Home Medications Allergies Coded Allergies: cephalexin (Verified Allergy, Mild, RASH, 02/28/16) Patient Home Medication List Home Medication List Reviewed: Yes (BRIAN SUAZO APRN) Aspirin (Aspirin EC) 81 Mg Tablet., 81 MG PO DAILY, (Reported) Entered as Reported by: ANDREW THURSTON on 11/11/16 1204 Atorvastatin Calcium (Atorvastatin Calcium) 10 Mg Tablet, 10 MG PO DAILY, (Reported) Entered as Reported by: ORLIN BENJAMIN on 06/14/19 0835 Clopidogrel Bisulfate (Plavix) 75 Mg Tablet, 75 MG PO DAILY, (Reported) Entered as Reported by: ORLIN BENJAMIN on 06/14/19 0835 Doxycycline Hyclate (Doxycycline Hyclate) 100 Mg Tablet, 100 MG PO BID Prescribed by: BRIAN SUAZO on 11/26/21 1156 Doxycycline Hyclate (Doxycycline Hyclate) 100 Mg Tablet, 100 MG PO BID Prescribed by: BRIAN SUAZO on 01/02/22 1201 Hydrocodone/Acetaminophen (Hydrocodone-Acetamin 5-325 mg) 1 Each Tablet, 1 TAB PO Q4H PRN for PAIN-MODERATE (5-7) Prescribed by: BRIAN SUAZO on 01/02/22 1201 Lisinopril (Lisinopril) 10 Mg Tablet, 10 MG PO DAILY, (Reported) Entered as Reported by: ORLIN BENJAMIN on 08/14/20 1152 [place] 3 Polyunsat Fatty Acids (Fish Oil 1,000 mg Capsule) 1,000 Mg Cap, 3,000 MG PO DAILY, (Reported) Entered as Reported by: ANDREW THURSTON on 11/11/16 1204 Review of Systems Constitutional: see HPI; No chills, No fever EENTM: see HPI Respiratory: no symptoms reported Cardiovascular: no symptoms reported Genitourinary: no symptoms reported Musculoskeletal: see HPI Skin: see HPI Psychiatric/Neurological: No Symptoms Reported (BRIAN SUAZO APRN) Past Oionwpl-Rjcbpu-Qkdmhx Hx Patient Social History Tobacco Use?: Yes Tobacco type used: Cigarettes Use of E-Cig and/or Vaping dev: No Substance use?: Yes Substance type: Marijuana Alcohol Use?: No (BRIAN SUAZO APRN) Immunizations Up To Date Influenza Vaccine Up-to-Date: No; Not Current First/Initial COVID19 Vaccinat: 2020 Second COVID19 Vaccination Aakash: 2020 Third COVID19 Vaccination Date: N/A COVID19 Vaccine Busher Helper: GISELLE (BRIAN SUAZO APRN) Seasonal Allergies Seasonal Allergies: No (BRIAN SUAZO APRN) Past Medical History Surgeries: Yes Eye Surgery Respiratory: No Currently Using CPAP: No Currently Using BIPAP: No Cardiac: No Neurological: No Sexually Transmitted Disease: No HIV/AIDS: No Genitourinary: No Gastrointestinal: No Musculoskeletal: No Endocrine: Yes HEENT: No Cancer: No Psychosocial: No Integumentary: No Blood Disorders: No Adverse Reaction/Blood Tranf: No (BRIAN SUAZO APRN) Physical Exam Vital Signs Vital Signs - First Documented 01/02/22 11:08 Temp 36.0 Pulse 86 Resp 20 B/P (MAP) 168/84 (112) Pulse Ox 95 O2 Delivery Room Air (CHARLA TORRES MD) Vital Signs Capillary Refill : Less Than 3 Seconds (BRIAN SUAZO APRN) Height, Weight, BMI Height: 5'3.00" Weight: 153lbs. 0.0oz. 69.736422ci; 24.00 BMI Method: General Appearance: WD/WN, no apparent distress HEENT: PERRL/EOMI, normal ENT inspection Neck: non-tender, full range of motion Respiratory: no respiratory distress, no accessory muscle use Gastrointestinal: normal bowel sounds, non tender Hips: bilateral hip non-tender, bilateral hip normal inspection, bilateral hip normal range of motion Legs: bilateral leg non-tender, bilateral leg normal inspection, bilateral leg normal range of motion Knees: bilateral knee non-tender, bilateral knee normal inspection, bilateral knee normal range of motion Ankles: bilateral ankle non-tender, bilateral ankle normal inspection, bilateral ankle normal range of motion Feet: left foot other (Some necrotic eschar over the medial and proximal nail fold. Purulent material expressed from the site as well. We will do a digital block and then remove the eschar to facilitate further drainage. I will put her back on antibiotics. She will need to see podiatry or general surgery for this. There is 3-second capillary refill at the toe tip.) Skin: normal color, warm/dry (BRIAN SUAZO APRN) Progress/Results/Core Measures Results/Orders Vital Signs/I&O 01/02/22 11:08 Temp 36.0 Pulse 86 Resp 20 B/P (MAP) 168/84 (112) Pulse Ox 95 O2 Delivery Room Air (CHARLA TORRES MD) Blood Pressure Mean: 112 Departure Communication (Admissions) 9.-I did a digital block using 3 mL of 1% lidocaine without epinephrine. Let that work for about 10 minutes then we debrided the necrotic tissue. The underlying tissue was beefy red bleeding granulation tissue and looked pretty good. Got a culture of this area given the history of purulent discharge. Clean the whole area with Betadine prior to debridement. She did have some ingrown toenail issue on the medial side beneath this eschar so I went ahead and removed the toenail as well. No tunneling wound that I can see. Covered with antibiotic ointment gauze and Coban. does have an extensive smoking history. She has a history of severe peripheral arterial disease with angioplasty in the past. She has seen Dr. Liu from cardiology here for that. She states that she is supposed to be on atorvastatin and Plavix but she could not afford them in August so she quit taking them. She denies fevers or chills. Minimal pain but occasionally the toes go numb. The left great toe is tender only with movement. (BRIAN SUAZO APRN) Impression Primary Impression: Diabetic foot infection Additional Impression: PAD (peripheral artery disease) Disposition: HOME, SELF-CARE Condition: Stable Departure-Patient Inst. Decision time for Depature: 12:00 (BRIAN SUAZO APRN) Referrals: [facility] (PCP/Family) Primary Care Physician ROBERTA SMITH BRETT D DO KIDO, TAKAAKI MD WILDE, CORIN Q DPM Patient Instructions: Wound Infection Add. Discharge Instructions: 1. You must follow-up with either the representative phlebotomy services Dr. Aguirre or one of the surgeons listed within the next 1 to 2 weeks for recheck. Take the antibiotics as directed. Return to ER for any worsening. YOU must call them either today or Wednesday to make an appointment. Continue the aspirin. STOP SMOKING!! THROW THEM AWAY TODAY, OR DECIDE WHICH TOE(S) YOU WANT CUT OFF IN THE FUTURE. All discharge instructions reviewed with patient and/or family. Voiced u nderstanding. Scripts Hydrocodone/Acetaminophen (Hydrocodone-Acetamin 5-325 mg) 1 Each Tablet 1 TAB PO Q4H PRN for PAIN-MODERATE (5-7), #10 TAB Prov: BRIAN SUAZO APRN 01/02/22 Doxycycline Hyclate (Doxycycline Hyclate) 100 Mg Tablet 100 MG PO BID, #20 TAB 0 Refills Prov: BRIAN SUAZO APRN 01/02/22 Work/School Note: Work Release Form Date Seen in the Emergency Department: Jan 02, 2022 Return to Work: Jan 06, 2022 ATTENDING PHYSICIAN NOTE: I was physically present as attending physician in the emergency department during the care of this patient, but I was not directly involved in the decision making or delivery of care for this patient. (CHARLA TORRES MD) BRIAN SUAZO APRN Jan 02, 2022 11:24 HCARLA TORRES MD Jan 02, 2022 19:39
[2022-01-02] MEDS ORDERED: ACHD5005 PO (12:01)
[2022-01-02] MEDS ORDERED: DOXY100T2 PO (12:01)
== END 2022-01-02 12:09 | disposition home or self-care (01) ==
LOC: EDUNIT# 10:18 → ER 10:21
DX: E11.621 Type 2 diabetes mellitus with foot ulcer (principal); I73.9 Peripheral vascular disease, unspecified; L97.829 Non-pressure chronic ulcer of other part of left lower leg with unspecified severity; F17.210 Nicotine dependence, cigarettes, uncomplicated
CPT/HCPCS: 87070; 87077; 87205; 99282

== ENCOUNTER → 2022-01-26 | Outpatient (CLI) | payer BC ==
[~2022-01-26] MED LIST changes: +ACHD5005 PO
[2022-01-26 11:45] LABS: BASOPHILS # (AUTO) 0.1 10^3/uL (0.0-0.1); BASOPHILS % (AUTO) 1 % (0-10); EOSINOPHILS # (AUTO) 0.1 10^3/uL (0.0-0.3); EOSINOPHILS % (AUTO) 1 % (0-10); HEMATOCRIT 44 % (35-52); HEMOGLOBIN 14.5 g/dL (11.5-16.0); LYMPHOCYTES # (AUTO) 2.3 10^3/uL (1.0-4.0); LYMPHOCYTES % (AUTO) 29 % (12-44); MEAN CORPUSCULAR HEMOGLOBIN 31 pg (25-34); MEAN CORPUSCULAR HGB CONC 33 g/dL (32-36); MEAN CORPUSCULAR VOLUME 94 fL (80-99); MEAN PLATELET VOLUME 10.7 fL (9.0-12.2); MONOCYTES # (AUTO) 0.7 10^3/uL (0.0-1.0); MONOCYTES % (AUTO) 8 % (0-12); NEUTROPHILS # (AUTO) 4.9 10^3/uL (1.8-7.8); NEUTROPHILS % (AUTO) 61 % (42-75); PLATELET COUNT 214 10^3/uL (130-400)
[2022-01-26 11:58] LABS: ALBUMIN 4.1 GM/DL (3.2-4.5); BILIRUBIN,TOTAL 0.3 MG/DL (0.1-1.0); CREATININE SERUM 0.72 MG/DL (0.60-1.30); POTASSIUM 4.2 MMOL/L (3.6-5.0); TOTAL PROTEIN 7.5 GM/DL (6.4-8.2)
[2022-01-26 12:03] LABS: ERYTHROCYTE SEDIMENTATION RATE 17 MM/HR (0-30)
== END ==
LOC: LAB 11:17
PROVIDERS: ATTEND Family Medicine
DX: L97.522 Non-pressure chronic ulcer of other part of left foot with fat layer exposed (principal)
CPT/HCPCS: 36415; 80053; 85025; 85652; 86141

== ENCOUNTER → 2022-01-26 | Outpatient (CLI) | payer BC | LOC: WOUNDCARE 09:40 | PROVIDERS: ATTEND Family Medicine | DX: E11.621 Type 2 diabetes mellitus with foot ulcer (principal); L97.522 Non-pressure chronic ulcer of other part of left foot with fat layer exposed; L03.032 Cellulitis of left toe; T65.292A Toxic effect of other tobacco and nicotine, intentional self-harm, initial encounter; I70.245 Atherosclerosis of native arteries of left leg with ulceration of other part of foot; E11.65 Type 2 diabetes mellitus with hyperglycemia; E11.40 Type 2 diabetes mellitus with diabetic neuropathy, unspecified | CPT/HCPCS: 99214 ==

== ENCOUNTER → 2022-02-02 | Outpatient (CLI) | payer BC ==
[~2022-02-02] MED LIST changes: +REGADENOSON 0.4 MG/5 ML SYR (LEXISCAN) IV ONE
[2022-02-02] MEDS: CATHETER FLUSH 10 ML SYR IVP PRN ×2 (08:26→09:49)
[2022-02-02 09:40] VITALS: BP 126/63
--- NOTE | 2022-02-04 09:53 | Cardiology Stress Test Report ---
Stress Test Report Date of Procedure/Referring: Date of Procedure: Feb 02, 2022 PCP Farzaneh Liu MD Admitting Physician Center/[facility] Indications: CP Baseline Heart Rate: 77 Baseline Blood Pressure: Blood Pressure Systolic: 126 Blood Pressure Diastolic: 63 Baseline Vitals Vital Signs Date Time Temp Pulse Resp B/P (MAP) Pulse Ox O2 Delivery O2 Flow Rate FiO2 02/02/22 09:40 78 20 126/63 (84) 97 Room Air Baseline EKG: Baseline EKG: NSR Summary After explaining the procedure to the patient, she signed a consent and then brought to the stress nuclear laboratory. Patient received 0.4 mg Lexiscan for stress test, ECG, heart rate and blood pressure were monitored continuously. Resting and stress dose of radio tracer were injected, imaging was acquired and reviewed in short axis, horizontal long axis and vertical long axis views. TID: 1.09 SSS: 4 SDS: 4 EF: 60 1. Patient tolerated Lexiscan well 2. No significant ischemia or infarction on SPECT images 3. Normal left ventricular size, EF 60% Copy Copies To 1: [facility]/FARZANEH NGO MD Feb 04, 2022 09:53
== END ==
LOC: CARD 08:11
PROVIDERS: ATTEND Internal Medicine Cardiovascular Disease
DX: I25.10 Atherosclerotic heart disease of native coronary artery without angina pectoris (principal); I10 Essential (primary) hypertension
CPT/HCPCS: 78452; 93017

== ENCOUNTER → 2022-02-03 | Outpatient (CLI) | payer BC ==
[~2022-02-03] MED LIST changes: +ATOR40TA70 PO; +INSU100I29 SQ; +INSU100I55 SQ; -REGADENOSON 0.4 MG/5 ML SYR (LEXISCAN) IV ONE
== END ==
LOC: CARD 09:19
PROVIDERS: ATTEND Internal Medicine Cardiovascular Disease
DX: I11.9 Hypertensive heart disease without heart failure (principal); I25.10 Atherosclerotic heart disease of native coronary artery without angina pectoris
CPT/HCPCS: 93306

== ENCOUNTER → 2022-02-04 | Outpatient (CLI) | payer BC | LOC: WOUNDCARE 10:54 | PROVIDERS: ATTEND Family Medicine | DX: E11.621 Type 2 diabetes mellitus with foot ulcer (principal); L97.522 Non-pressure chronic ulcer of other part of left foot with fat layer exposed; L03.032 Cellulitis of left toe; T65.291A Toxic effect of other tobacco and nicotine, accidental (unintentional), initial encounter; I70.245 Atherosclerosis of native arteries of left leg with ulceration of other part of foot; E11.65 Type 2 diabetes mellitus with hyperglycemia; E11.42 Type 2 diabetes mellitus with diabetic polyneuropathy; I96 Gangrene, not elsewhere classified | CPT/HCPCS: 99213 ==

== ENCOUNTER → 2022-02-05 | Outpatient (CLI) | payer BC ==
[~2022-02-05] MED LIST changes: +GADOTERATE 0.5 MMOL/ML (CLARISCAN) 15 ML VIAL IV ONE
--- NOTE | 2022-02-05 10:20 | Diagnostic Imaging Report ---
Indication: Pre-MRI screening. Comparison: None available. Findings and Impression: No periorbital radiopaque foreign body that would preclude MRI exam. Dictated by: Dictated on workstation # [id number]
--- NOTE | 2022-02-05 14:09 | Diagnostic Imaging Report ---
PROCEDURE: MRI left lower extremity with and without contrast. TECHNIQUE: Multiplanar, multisequence pre and post contrast-enhanced MRI of the left lower extremity was accomplished. INDICATION: Diabetic ulcer on the medial aspect of the great toe. COMPARISON: None available. FINDINGS: There is small dermal ulcer on the medial aspect of the great toe at the level of the distal phalanx. The ulcer contacts the underlying distal phalanx. There is T2 hyperintense bone marrow edema in the tuft of the distal phalanx and very subtle T1 hypointense marrow replacement in this region. There is also small amount of T2 hyperintense marrow signal along the medial base of the distal phalanx but this area does not have associated T1 hypointense marrow changes. No ring-enhancing fluid collection that would indicate drainable abscess. The remainder of the osseous structures in the forefoot are normal in signal. Intrinsic musculature of foot is normal bulk. IMPRESSION: 1. Small ulcer along the medial aspect of the great toe has marrow changes in the great toe distal phalanx that are highly suggestive of early osteomyelitis given proximity to the ulcer. 2. No soft tissue abscess. Dictated by: Dictated on workstation # [id number]
== END ==
LOC: RAD 09:39
PROVIDERS: ATTEND Family Medicine
DX: E11.621 Type 2 diabetes mellitus with foot ulcer (principal); E11.65 Type 2 diabetes mellitus with hyperglycemia; E11.40 Type 2 diabetes mellitus with diabetic neuropathy, unspecified; L97.522 Non-pressure chronic ulcer of other part of left foot with fat layer exposed; L03.032 Cellulitis of left toe; I70.245 Atherosclerosis of native arteries of left leg with ulceration of other part of foot; T65.292A Toxic effect of other tobacco and nicotine, intentional self-harm, initial encounter; F17.210 Nicotine dependence, cigarettes, uncomplicated
CPT/HCPCS: 70250; 73720

== ENCOUNTER 2022-02-06 09:28 | Day surgery (SDC) | payer BC ==
[~2022-02-06] VITALS: Ht 160 cm; Wt 67.0 kg
[~2022-02-06 09:28] MED LIST changes: -ATOR40TA70 PO; +CATHETER FLUSH 10 ML SYR IVP PRN; -GADOTERATE 0.5 MMOL/ML (CLARISCAN) 15 ML VIAL IV ONE; -INSU100I29 SQ; -INSU100I55 SQ; +REGADENOSON 0.4 MG/5 ML SYR (LEXISCAN) IV ONE
[2022-02-06] MEDS ORDERED: NS IV 1000 ML 1,000 ML IV SCH (10:00)
[2022-02-06 10:17] LABS: BILIRUBIN,URINE NEGATIVE (NEGATIVE); CLARITY,URINE CLEAR; COLOR,URINE YELLOW; GLUCOSE, URINE (UA) NEGATIVE (NEGATIVE); KETONES,URINE NEGATIVE (NEGATIVE); LEUKOCYTE ESTERASE ,URINE NEGATIVE (NEGATIVE); NITRITE,URINE NEGATIVE (NEGATIVE); PROTEIN,URINE TRACE (NEGATIVE)
--- NOTE | 2022-02-06 10:20 | Diagnostic Imaging Report ---
INDICATION: Non-healing wound COMPARISON: 08/14/2020 FINDINGS: Single frontal view of the chest demonstrates normal heart size and pulmonary vascularity. The lungs are well aerated and clear. No large pleural effusion or pneumothorax is seen. The visualized osseous structures show no acute abnormalities. IMPRESSION: 1. No acute cardiopulmonary process. Dictated by: Dictated on workstation # [id number]
[2022-02-06 10:23] LABS: HEMATOCRIT 43 % (35-52); HEMOGLOBIN 14.2 g/dL (11.5-16.0); MEAN CORPUSCULAR HEMOGLOBIN 31 pg (25-34); MEAN CORPUSCULAR HGB CONC 33 g/dL (32-36); MEAN CORPUSCULAR VOLUME 95 fL (80-99); MEAN PLATELET VOLUME 10.6 fL (9.0-12.2); PLATELET COUNT 268 10^3/uL (130-400); WHITE BLOOD COUNT 8.2 10^3/uL (4.3-11.0)
[2022-02-06 10:26] VITALS: BP 84/32
[2022-02-06 10:35] LABS: ALBUMIN 4.3 GM/DL (3.2-4.5); BILIRUBIN,TOTAL 0.5 MG/DL (0.1-1.0); CALCIUM 9.3 MG/DL (8.5-10.1); CREATININE SERUM 0.81 MG/DL (0.60-1.30); INR 0.9 (0.8-1.4); PROTHROMBIN TIME PATIENT 12.3 SEC (12.2-14.7); TOTAL PROTEIN 7.9 GM/DL (6.4-8.2)
[2022-02-06 10:38] LABS: BACTERIA,URINE NEGATIVE /HPF
[2022-02-06 10:39] LABS: HYALINE CASTS, URINE 0-2 /LPF
[2022-02-06] MEDS ORDERED: ATOR40TA70 PO (10:54)
[2022-02-06] MEDS ORDERED: INSU100I29 SQ (10:54)
[2022-02-06] MEDS ORDERED: METF-399 PO ×2 (10:54→14:04)
[2022-02-06] MEDS ORDERED: INSU100I55 SQ (10:54)
[2022-02-06] MEDS ORDERED: LIDOCAINE 1% INJ 20 ML VIAL ONE (11:28)
[2022-02-06] MEDS ORDERED: NS IV 1000 ML 1,000 ML ONE (11:29)
[2022-02-06] MEDS ORDERED: HEParin (CATH LAB) 2,000 ML IV ONE (11:29)
[2022-02-06] MEDS ORDERED: fentaNYL INJ 100 MCG/2 ML AMP ONE (13:06)
[2022-02-06] MEDS ORDERED: MIDAZOLAM 5 MG/5 ML (VERSED) VIAL ONE (13:07)
--- NOTE | 2022-02-06 13:07 | Conscious Sedation/ASA ---
Conscious Sedation Pre-Proced Time 13:06 ASA Score 3 For ASA 3 and 4: Consider anesthesia and medical clearance. Also, for patients with a history of failed moderate sedation consider anesthesia. Airway Lungs Heart ASA score ASA 1: a normal healthy patient ASA 2: a patient with a mild systemic disease (mid diabetes, controlled hypertension, obesity x ASA 3: a patient with a severe systemic disease that limits activity (angina, COPD, prior Myocardial infarction) ASA 4: a patient with an incapacitating disease that is a constant threat to life (CHF, renal failure) ASA 5: a moribund patient not expected to survive 24 hrs. (ruptured aneurysm) ASA 6: a declared brain- patient whose organs are being harvested. For emergent operations, add the letter E after the classification Mallampati Classification Grade 3 Sedation Plan Analgesia, Amnesia, Plan communicated to team members, Discussed options with patient/fam, Discussed risks with patient/fam The patient is an appropriate candidate to undergo the planned procedure, sedation, and anesthesia. The patient immediately re-assessed prior to indication. FARZANEH SKELTON MD Feb 06, 2022 13:07
[2022-02-06] MEDS ORDERED: HEParin 1000 UNIT/ML (10ML VIAL) FOR BOLUS ONE (13:24)
[2022-02-06] MEDS ORDERED: CLOPIDOGREL 300 MG (PLAVIX) TABLET PO ONE (14:00)
[2022-02-06] MEDS ORDERED: ASPIRIN 325 MG (5 GR) TABLET ONE (14:00)
[2022-02-06] MEDS ORDERED: CLOP75TA69 PO (14:04)
--- NOTE | 2022-02-06 14:05 | Discharge Inst-Post CATH ---
Discharge Inst-CATH/EP Problems Reviewed?: Yes Post Cardiac Cath/EP D/C Inst Follow Up/Plan Hold metformin for [address] Liu's office in 2 to 4 weeks <b>CARDIAC CATH/EP PROCEDURE DISCHARGE INSTRUCTIONS</b> ACTIVITY * Go Home directly and rest. * Limit activity of the leg (or wrist if it was used) for 7 days including aerobics, swimming, jogging, bicycling, etc. * Restrict stair-climbing for 7 days if possible, if not, climb up with your non-cath leg, then bring together on the same step. * Avoid lifting, pushing, pulling or excessive movement of the affected extremity for 7 days. * Customary sexual activity may be resumed after 2 days-use caution not to use a position that strains or causes pain to the affected extremity. * No driving for 24 hours. * NO SMOKING. * Avoid straining for bowel movements for 7 days. * Gentle walking on level ground is allowed. * Returning to work will depend on the type of procedure and the results. Your doctor will discuss this with you. CALL YOUR DOCTOR FOR ANY OF THE FOLLOWING: *If bleeding from the puncture site occurs- Apply gentle pressure to site with clean cloth and call your doctor or EMS. * If a knot or lump forms under the skin, increases in size, or causes pain. * If bruising appears to be worsening or moving further down your leg instead of disappearing. * Temperature above 101 F. CARE OF YOUR GROIN INCISION; * Bruising or purple discoloration of the skin near the puncture site is common. * You may shower only, no bathtub bathing for 5 days. Be careful to avoid slipping as your leg may feel stiff. * If a closure device was used on your femoral artery, please see the attached guide regarding care of the device and your leg. * Leave dressing on FOR 24 hours. CARE OF YOUR WRIST INCISION; * Bruising or purple discoloration of the skin near the puncture site is common. * You may shower. * DO NOT submerge wrist. * Leave dressing on FOR 24 hours. FARZANEH LIU MD Feb 06, 2022 14:05
--- NOTE | 2022-02-06 14:10 | Peripheral Report ---
Peripheral Report Physician (s)/Property Inspector (s) Physician FARZANEH SKELTON MD Pre-Procedure Diagnosis Pre-Procedure Diagnosis: claudication, peripheral arterial disease Post-Procedure Note Procedure Start Date: Feb 06, 2022 Name of Procedure: Bilateral lower extremities runoff Second order Balloon angioplasty and stent to the left common femoral Findings/Procedure Note PROCEDURE NOTE: 56-year-old lady with history of peripheral arterial disease, multiple intervention in the past, had balloon angioplasty of the common femoral and common iliac artery. Has been having increasing claudication with abnormal JAMISON. After explaining the procedure to the patient, all pros and cons were explained, all questions were answered. The patient signed the consent and then she was placed on the cardiac catheterization laboratory. The patient was placed on the cardiac catheterization laboratory. Groin was prepped SL fashion local anesthesia was used. Sheath placed in the in the right femoral artery, runoff of the right leg was done then using a rim catheter I was able to crossover and did runoff to the left leg. Sheath was exchanged and used long 6 Romansh sheath. 4000 units of heparin were given. I started with balloon dilatation using 5 x 100 then 6 x 40 [place]. Then I decided to proceed with stenting with the previously placed iliac stent extending from that the stent down to the common femoral artery using Supera 6 x 80, postdilatation with 6 [place]. With excellent results FINDINGS: Left lower extremity: Patent stent at the common iliac artery, severe stenosis post the stent. Successful deployment of Supera 6 x 80 extending from the common iliac artery to the common femoral artery with excellent results. The left SFA is a small artery with mild disease and patent artery down to the trifurcation with good flow. Right lower extremity, has patent stent at the right common femoral and common iliac artery, small vessel disease with slow flow distally. CONCLUSIONS: 1. Severe stenosis at the left common femoral artery and common iliac artery with successful deployment of Supera 6 x 80 extending from a previously placed iliac stent down to the common femoral artery with excellent results. Small vessel disease beyond that area with a small artery with good flow. 2. Patent stent at the right common femoral and common iliac artery with small vessel disease below the trifurcation slow flow. Moderate stenosis at the ostium of the femoral artery. DISCUSSION AND RECOMMENDATIONS: Continue to maximize medical therapy. Anesthesia Type: Conscious Sedation Estimated blood loss (mL): 30 ml Contrast Amount: 37 ml Total Radiation Dose: 238 mGy Post-Procedure Diagnosis Post-operative diagnosis: Claudication Peripheral arterial disease Hypertension Hyperlipidemia FARZANEH SKELTON MD Feb 06, 2022 14:10
[2022-02-06] MEDS ORDERED: PATIENT MAY USE OWN MEDS, ALL PO SCH (14:15)
[2022-02-06] MEDS: NS IV 1000 ML 1,000 ML IV SCH ×2 (14:55→23:24)
[2022-02-06 15:48] VITALS: BP 105/70
[2022-02-06 18:34] VITALS: BP 127/69
[2022-02-06] MEDS: inSUlin ASPART (NovoLOG) 1 UNIT/0.01 ML (CHARGE PER UNIT) SQ SCH (20:47)
[2022-02-07 05:39] LABS: HEMATOCRIT 39 % (35-52); HEMOGLOBIN 12.6 g/dL (11.5-16.0); MEAN CORPUSCULAR HEMOGLOBIN 30 pg (25-34); MEAN CORPUSCULAR HGB CONC 33 g/dL (32-36); MEAN CORPUSCULAR VOLUME 93 fL (80-99); MEAN PLATELET VOLUME 10.7 fL (9.0-12.2); PLATELET COUNT 217 10^3/uL (130-400); POTASSIUM 4.1 MMOL/L (3.6-5.0); WHITE BLOOD COUNT 7.5 10^3/uL (4.3-11.0)
[2022-02-07 05:40] LABS: CALCIUM 8.8 MG/DL (8.5-10.1)
[2022-02-07 05:45] LABS: CREATININE SERUM 0.62 MG/DL (0.60-1.30)
[2022-02-07] MEDS: inSUlin ASPART (NovoLOG) 1 UNIT/0.01 ML (CHARGE PER UNIT) SQ SCH (08:30)
[2022-02-07] MEDS ORDERED: CLOPIDOGREL 75 MG (PLAVIX) TABLET PO SCH (09:00)
[2022-02-07] MEDS ORDERED: ASPIRIN E.C. 81 MG (ECOTRIN) TAB PO SCH (09:00)
[2022-02-07] MEDS ORDERED: OMEGA 3 (FISH OIL) 1000 MG CAP PO SCH (09:00)
--- NOTE | 2022-02-07 09:28 | Progress Note - Cardiology ---
Cardiology SOAP Progress Note Subjective: No cp or palp or syncope or shortness of breath No n/v/d No focal weakness No groin or leg discomfort or discoloration Wishes to go home Objective: I&O/Vital Signs 02/06/22 02/07/22 02/07/22 02/07/22 23:35 01:00 04:19 07:00 Temp 36.8 36.8 Pulse 70 69 02/07/22 09:16 O2 Delivery Room Air Weight (Pounds): 153 Weight (Ounces): 0.0 Weight (Calculated Kilograms): 69.807410 Bruising: mild bruising Constitutional: AAO x 3, well-developed, well-nourished Respiratory: No accessory muscle use; other (good, bilat air entry) Cardiovascular: regular rate-rhythm, systolic murmur (soft PRIYANKA at card base) Gastrointestional: No tender; soft; No guarding, No rebound; audible bowel sounds Extremities: No clubbing, No cyanosis, No significant edema Neurologic/Psychiatric: oriented x 3, other (moves all limbs equally) Skin: No rash, No ulcerations; other (no leg dicoloration) Results/Procedures: Labs Laboratory Tests 02/06/22 10:03: White Blood Count 8.2, Red Blood Count 4.59, Hemoglobin 14.2, Hematocrit 43, Mean Corpuscular Volume 95, Mean Corpuscular Hemoglobin 31, Mean Corpuscular Hemoglobin Concent 33, Red Cell Distribution Width 13.2, Platelet Count 268, Mean Platelet Volume 10.6, Prothrombin Time 12.3, INR Comment 0.9, Activated Partial Thromboplast Time 28, Urine Color YELLOW, Urine Clarity CLEAR, Urine pH 6.0, Urine Specific [place] >=1.030, Urine Protein TRACEH, Urine Glucose (UA) NEGATIVE, Urine Ketones NEGATIVE, Urine Nitrite NEGATIVE, Urine Bilirubin NEGATIVE, Urine Urobilinogen 0.2, Urine Leukocyte Esterase NEGATIVE, Urine RBC (Auto) NEGATIVE, Urine RBC NONE, Urine WBC 2-5, Urine Squamous Epithelial Cells 5-10, Urine Crystals NONE, Urine Bacteria NEGATIVE, Urine Casts PRESENT, Urine Hyaline Casts 0-2H, Urine Mucus SMALLH, Urine Culture Indicated NO, Sodium Level 140, Potassium Level 4.0, Chloride Level 104, Carbon Dioxide Level 23, Anion Gap 13, Blood Urea Nitrogen 16, Creatinine 0.81, Estimat Glomerular Filtration Rate 85, BUN/Creatinine Ratio 20, Glucose Level 217H, Calcium Level 9.3, Corrected Calcium 9.1, Total Bilirubin 0.5, Aspartate Amino Transf (AST/SGOT) 15, Alanine Aminotransferase (ALT/SGPT) 23, Alkaline Phosphatase 76, Total Protein 7.9, Albumin 4.3, Triglycerides Level 87, Cholesterol Level 134, LDL Cholesterol Direct 88, VLDL Cholesterol 17, HDL Cholesterol 37L 02/06/22 20:29: Glucometer 214H 02/07/22 04:56: White Blood Count 7.5, Red Blood Count 4.15, Hemoglobin 12.6, Hematocrit 39, Mean Corpuscular Volume 93, Mean Corpuscular Hemoglobin 30, Mean Corpuscular Hemoglobin Concent 33, Red Cell Distribution Width 13.1, Platelet Count 217, Mean Platelet Volume 10.7, Sodium Level 139, Potassium Level 4.1, Chloride Level 107, Carbon Dioxide Level 20L, Anion Gap 12, Blood Urea Nitrogen 10, Creatinine 0.62, Estimat Glomerular Filtration Rate 104, BUN/Creatinine Ratio 16, Glucose Level 80, Calcium Level 8.8 Laboratory Tests 02/06/22 10:03 02/07/22 04:56 A/P: Assessment: PAD - H/o mutiple PAD interventions. Last peripheral angio on 02/06/22: Severe stenosis at the left common femoral artery and common iliac artery with successful deployment of Supera 6 x 80 extending from a previously placed iliac stent down to the common femoral artery with excellent results. Small vessel disease beyond that area with a small artery with good flow.- Patent stent at the right common femoral and common iliac artery with small vessel disease below the trifurcation slow flow. Moderate stenosis at the ostium of the femoral artery. DM II Htn HL Plan: I interviewed and examined her and reviewed her procedure and explained it to her and answered her questions She wishes to go home Advised to hold off on metformin for 48 hours KELLY PINZON MD FACP FAC CCDS Feb 07, 2022 09:28
[2022-02-07] MEDS: NS IV 1000 ML 1,000 ML IV SCH (10:29)
== END 2022-02-07 10:30 | disposition home or self-care (01) ==
LOC: CATH 09:28 → CSD 14:47 → CATH 02-07 10:30
PROVIDERS: ATTEND Internal Medicine Cardiovascular Disease
DX: E11.51 Type 2 diabetes mellitus with diabetic peripheral angiopathy without gangrene (principal); I70.203 Unspecified atherosclerosis of native arteries of extremities, bilateral legs; I70.92 Chronic total occlusion of artery of the extremities; I65.23 Occlusion and stenosis of bilateral carotid arteries; I10 Essential (primary) hypertension; E78.5 Hyperlipidemia, unspecified; E11.621 Type 2 diabetes mellitus with foot ulcer; F17.210 Nicotine dependence, cigarettes, uncomplicated
CPT/HCPCS: 36246; 36415; 71045; 75716; 80048; 80053; 80061; 81000; 82947; 85027; 85610; 85730; 87081; 93005

== ENCOUNTER → 2022-02-10 | Outpatient (CLI) | payer BC ==
[~2022-02-10] MED LIST changes: +ATOR40TA70 PO; -CATHETER FLUSH 10 ML SYR IVP PRN; +INSU100I29 SQ; +INSU100I55 SQ; -REGADENOSON 0.4 MG/5 ML SYR (LEXISCAN) IV ONE
== END ==
LOC: WOUNDCARE 08:50
PROVIDERS: ATTEND Family Medicine
DX: L97.522 Non-pressure chronic ulcer of other part of left foot with fat layer exposed (principal); L03.032 Cellulitis of left toe; E11.621 Type 2 diabetes mellitus with foot ulcer; T65.292A Toxic effect of other tobacco and nicotine, intentional self-harm, initial encounter; I70.245 Atherosclerosis of native arteries of left leg with ulceration of other part of foot; E11.65 Type 2 diabetes mellitus with hyperglycemia; E11.40 Type 2 diabetes mellitus with diabetic neuropathy, unspecified; M86.172 Other acute osteomyelitis, left ankle and foot; E11.52 Type 2 diabetes mellitus with diabetic peripheral angiopathy with gangrene
CPT/HCPCS: 99212

== ENCOUNTER → 2022-02-24 | Outpatient (CLI) | payer BC | LOC: WOUNDCARE 08:50 | PROVIDERS: ATTEND Family Medicine | DX: E11.65 Type 2 diabetes mellitus with hyperglycemia (principal); L97.522 Non-pressure chronic ulcer of other part of left foot with fat layer exposed; T65.222A Toxic effect of tobacco cigarettes, intentional self-harm, initial encounter; I70.245 Atherosclerosis of native arteries of left leg with ulceration of other part of foot; E11.40 Type 2 diabetes mellitus with diabetic neuropathy, unspecified; M86.172 Other acute osteomyelitis, left ankle and foot; E11.52 Type 2 diabetes mellitus with diabetic peripheral angiopathy with gangrene | CPT/HCPCS: 99212 ==

== ENCOUNTER → 2022-03-03 | Outpatient (CLI) | payer BC | LOC: WOUNDCARE 08:56 | PROVIDERS: ATTEND Family Medicine | DX: E11.621 Type 2 diabetes mellitus with foot ulcer (principal); L97.522 Non-pressure chronic ulcer of other part of left foot with fat layer exposed; T65.2 Toxic effect of tobacco and nicotine; E11.65 Type 2 diabetes mellitus with hyperglycemia; E11.40 Type 2 diabetes mellitus with diabetic neuropathy, unspecified; E11.69 Type 2 diabetes mellitus with other specified complication; M86.8X7 Other osteomyelitis, ankle and foot; E11.52 Type 2 diabetes mellitus with diabetic peripheral angiopathy with gangrene; I96 Gangrene, not elsewhere classified | CPT/HCPCS: 99212 ==

== ENCOUNTER → 2022-03-10 | Outpatient (CLI) | payer BC | LOC: WOUNDCARE 08:46 | PROVIDERS: ATTEND Family Medicine | DX: L97.522 Non-pressure chronic ulcer of other part of left foot with fat layer exposed (principal); E11.621 Type 2 diabetes mellitus with foot ulcer; T65.292A Toxic effect of other tobacco and nicotine, intentional self-harm, initial encounter; I70.245 Atherosclerosis of native arteries of left leg with ulceration of other part of foot; E11.65 Type 2 diabetes mellitus with hyperglycemia; E11.40 Type 2 diabetes mellitus with diabetic neuropathy, unspecified; M86.172 Other acute osteomyelitis, left ankle and foot; E11.52 Type 2 diabetes mellitus with diabetic peripheral angiopathy with gangrene | CPT/HCPCS: 99212 ==